=== PATIENT | female | born 1980 ===

== ENCOUNTER 2022-04-17 06:59 | Emergency (ER) | payer MEDICAID, SELFPAY ==
--- NOTE | ~2022-04-17 | XR_ITS ---
EXAMINATION: XR CHEST CLINICAL INFORMATION: Left-sided chest pain COMPARISON: Previous chest x-ray March 2016 TECHNIQUE: Frontal view of the chest was obtained. FINDINGS: No significant abnormality is noted involving the heart, lungs, mediastinum, bony thorax or soft tissues. XR/XR chest 1V IMPRESSION: Unremarkable examination.
--- NOTE | 2022-04-17 07:08 | ECG_ITS ---
Test Reason : CP Blood Pressure : / mmHG Vent. Rate : 089 BPM Atrial Rate : 089 BPM P-R Int : 132 ms QRS Dur : 074 ms QT Int : 376 ms P-R-T Axes : 054 041 062 degrees QTc Int : 457 ms Normal sinus rhythm ST & T wave abnormality, consider inferior ischemia ST & T wave abnormality, consider anterior ischemia Abnormal ECG When compared with ECG of 06-APR-2016 12:55, T wave inversion now evident in Inferior leads T wave inversion now evident in Anterior leads Referred By: Generic ED Physician Electronically Signed By:Bridger Wills
[2022-04-17 07:22] VITALS: BP 125/87; PULSE 95; RESP 16; TEMP 36.7; O2SAT 99; BMI 28.0
--- NOTE | 2022-04-17 07:26 | ED.CHESTPAIN ---
HPI - Chest Pain General Chief Complaint: Chest Pain Stated Complaint: Chest pain Time Seen by Provider: 04/17/22 07:26 Source: patient Mode of arrival: ambulatory Limitations: no limitations History of Present Illness HPI narrative: 41-year-old female who presents emergency department for evaluation of chest pain. 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 She states that yesterday at 16:30 hours she ate at [employer], she had the original crispy chicken and Japanese fries. She states that shortly after eating his food she developed a constant left-sided chest pain which she states has been waxing and waning in intensity. She states that this pain is different than her usual esophagitis. She states that throughout the morning she woke up every hour secondary to her pain. She describes a fluttering sensation in her chest as well. She states that her pain is 8/10 at its worst. She had associated lightheadedness. She denied diaphoresis, nausea or vomiting. The pain does radiate to her left axilla. It does not radiate to her back. She denied fever, chills, rhinorrhea, sore throat. She states she has a chronic cough secondary to her smoking. Denies shortness of breath. She states she has mild dyspnea on exertion which again she attributes to her smoking. She denied nausea, vomiting diarrhea. She denied frequency, urgency or dysuria. She has not been vaccinated against COVID-19. She states that she did have a COVID-19 infection in November of 2021 MD complaint: chest pain Onset (ago): hour(s) (17) Timing of current episode: constant ('s and wanes in intensity) Prior episodes: No Onset: during rest Pain location: left chest Pain radiation: other (Left axilla) Severity: severe Pain scale (0-10): 8 Quality: other (Pressure and flexed sensation) Relieving factors: nothing Exacerbating factors: nothing Associated symptoms: other (Lightheaded) Treatment prior to arrival: none Risk Factors Coronary artery disease risk factors: smoking history (1/2-1 pack per day times 22 years) Related Data Previous Rx's Medication Instructions Recorded lorazepam 0.5 mg tablet (Ativan) 0.5 mg PO TID PRN #10 tab 04/17/22 potassium chloride 20 mEq 20 meq PO DAILY #10 tab 04/17/22 tablet,extended release(part/cryst) Allergies Allergy/AdvReac Type Severity Reaction Status Date / Time amoxicillin [AMOXICILLIN] Allergy Unknown HIVES Verified 04/17/22 07:28 aspirin [ASPIRIN] Allergy Unknown DISORIENTED Verified 04/17/22 07:28 azithromycin [Azithromycin] Allergy Unknown HIVES Verified 04/17/22 07:28 erythromycin base Allergy Unknown HIVES TO Verified 04/17/22 07:28 [Erythromycin Base] MYCINS Penicillins [PENICILLINS] Allergy Unknown HIVES Verified 04/17/22 07:28 Review of Systems Review of Systems: Yes all other systems are reviewed and are negative [facility] Past Medical History [facility] Narrative: Past medical history: GERD, esophagitis, depression, anxiety, anger disorder. Past surgical history: None. Social history: She smokes 1/2 pack of cigarettes per day times 22 years. She denies alcohol use. She does smoke marijuana for her anxiety. Social History Social History Alcohol intake: never Smoked in Last 30 Days: No Use of substances other than those prescribed or required for medical reasons: No Advance Directives: No Advance Directives Information Provided: No Physical Exam Vital Signs: Vital Signs: Last Vital Signs Temp 98.1 F 04/17/22 07:22 Pulse 95 04/17/22 07:22 Resp 16 04/17/22 07:22 BP 125/87 04/17/22 07:22 Pulse Ox 99 04/17/22 07:22 BMI result Body Mass Index 28.0 Const: General: cooperative and no acute distress Orientation/consciousness: oriented to person and oriented to place Limitations: no limitations HEENT: Head: Yes normal to inspection, Yes normocephalic and Yes atraumatic Ears: external ears normal General nose exam: Normal external nose present Face and sinus: Yes normal facial exam Mouth: Normal oral and palatal mucosa present Throat: Yes posterior oropharynx normal Eyes: General: appearance normal, both eyes and all related structures Pupils: Equal, round and reactive pupils present Neck: Neck: Yes normal visual inspection, Yes no lymphadenopathy, Yes trachea midline and Yes supple Chest: Chest palpation & inspection: normal inspection of the chest and normal palpation of entire chest wall Resp: Effort & Inspection: normal respiratory effort and able to speak in complete sentences Auscultation: clear to auscultation bilaterally Cardio: Rate: regular rate Rhythm: regular rhythm Heart sounds: S1 normal heart sound present, S2 normal heart sound present and no murmurs GI: Inspection: Yes normal to inspection Palpation (GI): Soft to palpation, nontender and no guarding Auscultation: normal bowel sounds : General: Yes no CVA tenderness Back/Spine/Pelvis: Back: no CVA tenderness Skin: General skin exam: no rashes or lesions noted Neuro: General: oriented to person and oriented to place Cranial nerves: Yes CN's II-XII intact bilaterally and Yes Equal, round and reactive pupils present Cognition (Neuro): normal cognition Motor exam (neuro): 5/5 motor strength present throughout Extrem: General: Yes normal to inspection Psych: Appearance: grossly normal Speech and movement: Normal speech and movement present Affect: normal affect Attitude: cooperative Thought process: Normal thought process present Thought content: Normal thought content present Course Course Course Narrative: 41-year-old female who presents emergency department for evaluation left-sided chest pain radiating to her axilla, the pain started yesterday at 16:30 hours after she ate food at [employer]. She states she has a history of GERD and esophagitis which is triggered by food but this pain was different than her usual esophagitis pain. Patient's initial vital signs were normal and her physical examination was unremarkable . Differential includes but is not limited to esophagitis, GERD, anxiety, coronary disease, myocardial infarction, cardiac ischemia, palpitations. Laboratory evaluation was ordered. Patient was treated with Toradol 15 mg IV, Zofran 4 mg IV and Ativan 0.5 mg orally Twelve EKG was abnormal. Patient had a normal sinus rhythm with a rate of 89, she has less than [address] segment depression in leads 2, AVF, V3 through V6. I do not have an old EKG available for comparison. 1001: Laboratory evaluation: WBC elevated 15,000. Potassium low 3.0 troponin below detectable limits. Radiology evaluation: Chest x-ray was unremarkable. The patient did have PVCs on the sterile technician which she was feeling which explains her palpitations. At this time I believe that her chest pain is secondary to her esophagitis and I did discuss this with her. The patient was given potassium chloride 40 mEq orally. She was started on a potassium supplement 20 mg once a day for 1 week. The patient did get improvement with the above treatment I do believe she has component of anxiety which is making her palpitations worse therefore she was prescribed Ativan 0.5 mg 1 pill 3 times a day as needed for anxiety, palpitations. She was given printed and verbal instructions and discharged home. MDM - Chest Pain Lab Data Result diagrams: 04/17/22 08:08 04/17/22 08:08 Labs: Lab Results 04/17/22 04/17/22 04/17/22 Range/Units 08:08 08:08 08:08 WBC 15.0 H (4.8-10.8) X10*3/uL RBC 4.14 L (4.20-5.50) X10*6/uL Hgb 13.6 (12.0-16.0) g/dl Hct 39.9 (37.0-47.0) % MCV 96.4 (80.0-98.0) fL MCH 32.9 (27.0-33.0) pg MCHC 34.1 (31.0-35.0) g/dl RDW 12.7 (11.0-16.0) % Plt Count 211 (160-400) X10*3/uL MPV 11.1 (9.4-12.3) fL Immature Gran % (Auto) 0.3 (0.0-0.4) % Neut % (Auto) 84.0 H (45-73) % Lymph % (Auto) 11.6 L (20-40) % Elbert % (Auto) 3.7 (2-11) % Eos % (Auto) 0.2 (0-4) % Baso % (Auto) 0.2 (0-2) % Lymph # (Auto) 1.7 (1.2-4.9) X10*3/uL Elbert # (Auto) 0.6 (0.1-1.2) X10*3/uL Eos # (Auto) 0.0 (0.0-0.4) X10*3/uL Baso # (Auto) 0.0 (0.0-0.2) X10*3/uL Abs Immat Gran (auto) 0.05 H (0.00-0.03) X10*3/uL Absolute Neuts (auto) 12.6 H (2.0-8.3) x10*3/uL Absolute Nucleated RBC 0.000 (0.0-0.012) X10*3/uL Nucleated RBC % (auto) 0.0 (0.0-0.2) /100WBC Sodium 144 (135-145) mmol/L Potassium 3.0 L (3.3-5.1) mmol/L Chloride 113 H (96-108) mmol/L Carbon Dioxide 23 (22-29) mmol/L Anion Gap 11 L (12-20) BUN 9 (9-16) mg/dL Creatinine 0.74 (0.5-1.4) mg/dL Estim Creat Clear Calc 98.5 Estimated GFR > 60 Random Glucose 95 (60-115) mg/dL Calcium 8.8 (8.4-10.2) mg/dL Total Bilirubin 0.5 (0.0-1.0) mg/dL AST 10 (5-31) U/L ALT 8 (0-31) U/L Alkaline Phosphatase 64 (39-117) U/L Troponin I High Sens < 3.5 (<3.5-17.0) ng/L Total Protein 6.1 L (6.5-8.0) g/dL Albumin 3.7 (3.5-5.0) g/dL Lipase 20 (8-78) U/L ECG Data ECG #1: Attestation: I personally reviewed and interpreted this ECG as follows: Interpretation: 0703: Normal sinus rhythm with a rate of 89, normal MI interval, QRS duration QTC interval, less than [address] segment depression in leads 2, AVF, V3 through V6, no ST segment elevation, no PACs, no PVCs, this EKG is concerning for lateral and inferior ischemia. Discharge Plan Discharge Clinical Impression: Palpitations, Acute hypokalemia Chest pain Qualifiers: Chest pain type: unspecified Qualified Code(s): R07.9 - Chest pain, unspecified Patient Disposition: Home, Self-Care Instructions: Heart Palpitations (DC), Potassium Content of Foods List (ED), Hypokalemia (ED) Additional Instructions: Your laboratory evaluation did reveal a slight elevation in your white blood cell count and a slightly low potassium. Your troponin (a sensitive marker for heart attacks) was below detectable limits which is reassuring At this time I believe that your chest pain is caused by your esophagitis. Your experiencing palpitations and on the sterile technician you have premature ventricular contractions (PVCs). These are common and are normal and these PVCs explain the pause and thumping sensation that you are feeling in your chest. Take K-dur 20 mEq once a day for 10 days this is a potassium supplement See list of high potassium foods Sometimes palpitations can be caused by anxiety, stress, pain, lack of sleep, and caffeine. Avoid caffeine for the next 2 weeks. Take Ativan 0.5 mg pills, 1 pill every 6-8 hours as needed for anxiety and palpitations. This medication will make you sleepy, do not drive or work while taking this medication. Ativan can be addictingIf your concerned about addiction you can ask the pharmacist to give you less pills than prescribed. Follow-up with your doctor in 2 days. Please return to the emergency department if your symptoms get worse or if you develop any symptoms that are concerning to you. Prescriptions: New potassium chloride 20 mEq tablet,ER particles/crystals 20 meq PO DAILY Qty: 10 0RF lorazepam [Ativan] 0.5 mg tablet 0.5 mg PO TID PRN (Reason: anxiety) Qty: 10 0RF Rx Instructions: patient may ask for partial fill
[2022-04-17] MEDS: Ketorolac Tromethamine 15 MG/ML VIAL IVPUSH (08:13)
[2022-04-17] MEDS: ondansetron HCL 4 MG/2 ML VIAL IVPUSH (08:13)
[2022-04-17] MEDS: LORazepam 0.5 MG TABLET PO (08:13)
[2022-04-17 08:14] LABS: MANUAL DIFF FLAG NO
[2022-04-17 08:15] LABS: Basophils Percent Auto 0.2 % (0-2); Eosinophils Percent Auto 0.2 % (0-4); Hematocrit 39.9 % (37.0-47.0); Hemoglobin 13.6 g/dl (12.0-16.0); Imm Gran Abs Auto 0.05 X10*3/uL (0.00-0.03); Imm Gran Pct Auto 0.3 % (0.0-0.4); Lymphocytes Absolute Auto 1.7 X10*3/uL (1.2-4.9); Lymphocytes Percent Auto 11.6 % (20-40); Mean Corpuscular HGB Conc 34.1 g/dl (31.0-35.0); Mean Corpuscular Hemoglobin 32.9 pg (27.0-33.0); Mean Corpuscular Volume 96.4 fL (80.0-98.0); Mean Platelet Volume 11.1 fL (9.4-12.3); Monocytes Absolute Auto 0.6 X10*3/uL (0.1-1.2); Monocytes Percent Auto 3.7 % (2-11); Neutrophils Absolute Auto 12.6 x10*3/uL (2.0-8.3); Platelet Count 211 X10*3/uL (160-400); Red Blood Count 4.14 X10*6/uL (4.20-5.50); Red Cell Distribution Width 12.7 % (11.0-16.0)
[2022-04-17 08:29] LABS: Alanine Aminotransferase 8 U/L (0-31); Albumin Level 3.7 g/dL (3.5-5.0); Alkaline Phosphatase 64 U/L (39-117); Anion Gap 11 (12-20); Aspartate Amino Transferase 10 U/L (5-31); Bilirubin Total 0.5 mg/dL (0.0-1.0); Blood Urea Nitrogen 9 mg/dL (9-16); Calcium 8.8 mg/dL (8.4-10.2); Carbon Dioxide 23 mmol/L (22-29); Chloride 113 mmol/L (96-108); Creatinine Clr Calc Pharmacy 98.5; Estimated Glomerular Filt Rate > 60; Glucose Random 95 mg/dL (60-115); Lipase 20 U/L (8-78); Sodium 144 mmol/L (135-145); Total Protein 6.1 g/dL (6.5-8.0)
[2022-04-17 08:35] LABS: Troponin-I High Sensitivity < 3.5 ng/L (<3.5-17.0)
[2022-04-17] MEDS: Potassium Chloride Packet 20 MEQ PACKET 40 MEQ PO (10:40)
== END 2022-04-17 10:50 | disposition home or self-care (01) ==
PROVIDERS: Emergency Provider Emergency Medicine Emergency Medical Services
DX: R00.2 Palpitations (principal); E87.6 Hypokalemia; R07.89 Other chest pain; R42 Dizziness and giddiness; R05.9 Cough, unspecified; F17.210 Nicotine dependence, cigarettes, uncomplicated; Z71.6 Tobacco abuse counseling; Z79.899 Other long term (current) drug therapy
CPT/HCPCS: 36415; 71045; 80053; 83690; 84484; 85025; 93005; 96374; 96375; 99284; J1885; J2405

== ENCOUNTER 2022-04-21 10:31 | Emergency (ER) | payer MEDICAID, SELFPAY ==
--- NOTE | 2022-04-21 | ECG_ITS ---
Test Reason : chest pain Blood Pressure : / mmHG Vent. Rate : 097 BPM Atrial Rate : 097 BPM P-R Int : 124 ms QRS Dur : 074 ms QT Int : 364 ms P-R-T Axes : 072 051 076 degrees QTc Int : 462 ms Normal sinus rhythm Nonspecific ST and T wave abnormality Abnormal ECG When compared with ECG of 17-APR-2022 07:03, No significant change was found Referred By: Generic ED Physician Electronically Signed By:Bridger Wills
[2022-04-21 10:42] VITALS: BP 127/96; PULSE 98; RESP 18; TEMP 37.2; O2SAT 100; BMI 28.3
--- NOTE | 2022-04-21 11:16 | ED.CHESTPAIN ---
HPI - Chest Pain General Chief Complaint: Chest Pain Stated Complaint: Chest Discomfort ? Allergic Reaction Time Seen by Provider: 04/21/22 10:47 Source: patient and old records reviewed Mode of arrival: ambulatory Limitations: no limitations History of Present Illness HPI narrative: seen on 04/17 low K sent home with repletion and troponin negative at that time. hx of GERD, jackhammer esophagus with esophagitis, anxiety notes her chest pain that is sharp and stabbing returned this AM, she feels shaky and hot, ativan is not helping her. This has never happened to her before. She is not on OCPs MD complaint: chest pain Onset (ago): hour(s) (04/17 and then a few hours ago) Timing of current episode: constant Prior episodes: Yes Onset: during rest Pain location: left chest Pain radiation: none Severity: moderate Quality: sharp Relieving factors: nothing Exacerbating factors: movement Associated symptoms: nausea, vomiting and sense of impending doom Treatment prior to arrival: other (compliant with her K and ativan) Related Data Previous Rx's Medication Instructions Recorded lorazepam 0.5 mg tablet (Ativan) 0.5 mg PO TID PRN #10 tab 04/17/22 potassium chloride 20 mEq 20 meq PO DAILY #10 tab 04/17/22 tablet,extended release(part/cryst) ondansetron 4 mg disintegrating 4 mg PO Q8H PRN #20 tab 04/21/22 tablet Allergies Allergy/AdvReac Type Severity Reaction Status Date / Time amoxicillin [AMOXICILLIN] Allergy Unknown HIVES Verified 04/17/22 07:28 aspirin [ASPIRIN] Allergy Unknown DISORIENTED Verified 04/17/22 07:28 azithromycin [Azithromycin] Allergy Unknown HIVES Verified 04/17/22 07:28 erythromycin base Allergy Unknown HIVES TO Verified 04/17/22 07:28 [Erythromycin Base] MYCINS Penicillins [PENICILLINS] Allergy Unknown HIVES Verified 04/17/22 07:28 Review of Systems Review of Systems: Constitutional : No Weight loss, No Fever, No Chills, pos sweats ENT/Mouth : No sore throat, No Rhinorrhea Eyes: No Eye Pain, No Swelling Cardiovascular : pos Chest Pain, pos SOB, no Dyspnea on Exertion, No Orthopnea, No Edema, No Palpitations Respiratory : No Cough, No Sputum Gastrointestinal : pos Nausea, pos Vomiting, pos Diarrhea, No abdominal Pain, No Hematochezia, No Melena Genitourinary : No Dysuria, No Urinary Frequency Musculoskeletal : No joint pain, No Myalgias, No Joint Swelling Skin : No Skin Lesions, No rash Neuro : No Weakness, No Numbness, No Dizziness, No Headache Psych : pos Anxiety/Panic, No Depression Heme/Lymph: No Bruising, No Lymphadenopathy Endocrine : No Polyuria, No Polydipsia All other systems reviewed and are negative [facility] Past Medical History Attestation statement: The following information was validated with the patient. Medical History Anxiety Esophagitis GERD (gastroesophageal reflux disease) Social History Social History (Updated 04/21/22 @ 12:01 by Irasema Lorenzo DO) Alcohol intake: never Patient Tobacco Use Status: Current someday Tobacco user Advance Directives: No Advance Directives Information Provided: Yes Physical Exam Vital Signs: Vital Signs: Last Vital Signs Temp 98.9 F 04/21/22 10:42 Pulse 72 04/21/22 14:08 Resp 18 04/21/22 14:08 BP 123/72 04/21/22 14:08 Pulse Ox 98 04/21/22 14:08 BMI result Body Mass Index 28.3 Appearance: Alert. Oriented X3. No acute distress. Anxious, shaking Eyes: Pupils equal, round and reactive to light. ENT: Pharynx normal. Neck: Normal inspection. Neck supple. CVS: Normal heart rate and rhythm. Pulses normal. Respiratory: No respiratory distress. Breath sounds normal. Abdomen: Soft and non-tender. Skin: Skin warm and dry. Normal skin color. Normal skin turgor. Extremities: No lower extremity edema. No calf ttp Neuro: Oriented X 3. No motor deficit. No sensory deficit. Course Course Course Narrative: discussed with Cardiology given EKG - repeat troponin patient is flu B positive ? symptoms started on 04/17 vs today discussed with cardiology - outpatient stress test. will hold tamiflu as symptoms likely longer than 48 hours MDM - Chest Pain MDM Narrative Medical decision making narrative: 41 yo female with hx of anxiety, GERD, esophagitis here with c/o sharp chest pain with abnormal EKG - will repeat lytes, IV ativan, IV magnesium, IVF, troponin, ddimer dispo per results and findings possible discussion with cards given EKG Lab Data Result diagrams: 04/21/22 11:11 04/21/22 11:11 Labs: Lab Results 04/21/22 04/21/22 04/21/22 Range/Units 11:11 11:11 11:11 WBC 6.4 (4.8-10.8) X10*3/uL RBC 4.13 L (4.20-5.50) X10*6/uL Hgb 13.6 (12.0-16.0) g/dl Hct 40.4 (37.0-47.0) % MCV 97.8 (80.0-98.0) fL MCH 32.9 (27.0-33.0) pg MCHC 33.7 (31.0-35.0) g/dl RDW 12.7 (11.0-16.0) % Plt Count 192 (160-400) X10*3/uL MPV 10.8 (9.4-12.3) fL Immature Gran % (Auto) 0.3 (0.0-0.4) % Neut % (Auto) 75.5 H (45-73) % Lymph % (Auto) 18.6 L (20-40) % Nolan % (Auto) 4.8 (2-11) % Eos % (Auto) 0.2 (0-4) % Baso % (Auto) 0.6 (0-2) % Lymph # (Auto) 1.2 (1.2-4.9) X10*3/uL Nolan # (Auto) 0.3 (0.1-1.2) X10*3/uL Eos # (Auto) 0.0 (0.0-0.4) X10*3/uL Baso # (Auto) 0.0 (0.0-0.2) X10*3/uL Abs Immat Gran (auto) 0.02 (0.00-0.03) X10*3/uL Absolute Neuts (auto) 4.8 (2.0-8.3) x10*3/uL Absolute Nucleated RBC 0.000 (0.0-0.012) X10*3/uL Nucleated RBC % (auto) 0.0 (0.0-0.2) /100WBC D-Dimer High Sensitivty NG/ML Sodium 142 (135-145) mmol/L Potassium 3.9 D (3.3-5.1) mmol/L Chloride 111 H (96-108) mmol/L Carbon Dioxide 22 (22-29) mmol/L Anion Gap 13 (12-20) BUN 9 (9-16) mg/dL Creatinine 0.74 (0.5-1.4) mg/dL Estim Creat Clear Calc 95.5 Estimated GFR > 60 Random Glucose 83 (60-115) mg/dL Calcium 9.6 D (8.4-10.2) mg/dL Magnesium (1.6-2.6) mg/dL Total Bilirubin 0.7 (0.0-1.0) mg/dL AST 11 (5-31) U/L ALT 8 (0-31) U/L Alkaline Phosphatase 76 (39-117) U/L Troponin I High Sens < 3.5 (<3.5-17.0) ng/L Total Protein 6.6 (6.5-8.0) g/dL Albumin 4.1 (3.5-5.0) g/dL COVID-19 (BREANA) (Negative) COVID-19 Clin Com Influenza Type A (JOEL) (Negative) Influenza Type B (JOEL) (Negative) Influenza A & B Note 04/21/22 04/21/22 04/21/22 Range/Units 11:11 11:11 11:11 WBC (4.8-10.8) X10*3/uL RBC (4.20-5.50) X10*6/uL Hgb (12.0-16.0) g/dl Hct (37.0-47.0) % MCV (80.0-98.0) fL MCH (27.0-33.0) pg MCHC (31.0-35.0) g/dl RDW (11.0-16.0) % Plt Count (160-400) X10*3/uL MPV (9.4-12.3) fL Immature Gran % (Auto) (0.0-0.4) % Neut % (Auto) (45-73) % Lymph % (Auto) (20-40) % Nolan % (Auto) (2-11) % Eos % (Auto) (0-4) % Baso % (Auto) (0-2) % Lymph # (Auto) (1.2-4.9) X10*3/uL Nolan # (Auto) (0.1-1.2) X10*3/uL Eos # (Auto) (0.0-0.4) X10*3/uL Baso # (Auto) (0.0-0.2) X10*3/uL Abs Immat Gran (auto) (0.00-0.03) X10*3/uL Absolute Neuts (auto) (2.0-8.3) x10*3/uL Absolute Nucleated RBC (0.0-0.012) X10*3/uL Nucleated RBC % (auto) (0.0-0.2) /100WBC D-Dimer High Sensitivty NG/ML Sodium (135-145) mmol/L Potassium (3.3-5.1) mmol/L Chloride (96-108) mmol/L Carbon Dioxide (22-29) mmol/L Anion Gap (12-20) BUN (9-16) mg/dL Creatinine (0.5-1.4) mg/dL Estim Creat Clear Calc Estimated GFR Random Glucose (60-115) mg/dL Calcium (8.4-10.2) mg/dL Magnesium 1.7 (1.6-2.6) mg/dL Total Bilirubin (0.0-1.0) mg/dL AST (5-31) U/L ALT (0-31) U/L Alkaline Phosphatase (39-117) U/L Troponin I High Sens (<3.5-17.0) ng/L Total Protein (6.5-8.0) g/dL Albumin (3.5-5.0) g/dL COVID-19 (BREANA) Negative (Negative) COVID-19 Clin Com See Note Influenza Type A (JOEL) Negative (Negative) Influenza Type B (JOEL) Positive A (Negative) Influenza A & B Note See Note 04/21/22 04/21/22 Range/Units 11:42 13:25 WBC (4.8-10.8) X10*3/uL RBC (4.20-5.50) X10*6/uL Hgb (12.0-16.0) g/dl Hct (37.0-47.0) % MCV (80.0-98.0) fL MCH (27.0-33.0) pg MCHC (31.0-35.0) g/dl RDW (11.0-16.0) % Plt Count (160-400) X10*3/uL MPV (9.4-12.3) fL Immature Gran % (Auto) (0.0-0.4) % Neut % (Auto) (45-73) % Lymph % (Auto) (20-40) % Nolan % (Auto) (2-11) % Eos % (Auto) (0-4) % Baso % (Auto) (0-2) % Lymph # (Auto) (1.2-4.9) X10*3/uL Nolan # (Auto) (0.1-1.2) X10*3/uL Eos # (Auto) (0.0-0.4) X10*3/uL Baso # (Auto) (0.0-0.2) X10*3/uL Abs Immat Gran (auto) (0.00-0.03) X10*3/uL Absolute Neuts (auto) (2.0-8.3) x10*3/uL Absolute Nucleated RBC (0.0-0.012) X10*3/uL Nucleated RBC % (auto) (0.0-0.2) /100WBC D-Dimer High Sensitivty < 150 NG/ML Sodium (135-145) mmol/L Potassium (3.3-5.1) mmol/L Chloride (96-108) mmol/L Carbon Dioxide (22-29) mmol/L Anion Gap (12-20) BUN (9-16) mg/dL Creatinine (0.5-1.4) mg/dL Estim Creat Clear Calc Estimated GFR Random Glucose (60-115) mg/dL Calcium (8.4-10.2) mg/dL Magnesium (1.6-2.6) mg/dL Total Bilirubin (0.0-1.0) mg/dL AST (5-31) U/L ALT (0-31) U/L Alkaline Phosphatase (39-117) U/L Troponin I High Sens < 3.5 (<3.5-17.0) ng/L Total Protein (6.5-8.0) g/dL Albumin (3.5-5.0) g/dL COVID-19 (BREANA) (Negative) COVID-19 Clin Com Influenza Type A (JOEL) (Negative) Influenza Type B (JOEL) (Negative) Influenza A & B Note ECG Data ECG #1: Attestation: I personally reviewed and interpreted this ECG as follows: ECG interpretation date: 04/21/22 ECG interpretation time: 11:17 Interpretation: Rate: 97 Rhythm: NSR [place]: normal Normal P waves. Normal ARIA. Normal QRS complex. ST T wave : diffuse ST seg depressions - anterior and inf leads no LUZ MARIA qTC: normal prior studies: no change from 04/17/22 but new since 2016 The study has been interpreted contemporaneously by me. . Discharge Plan Discharge Clinical Impression: Atypical chest pain, Influenza B, Abnormal ECG Patient Disposition: Home, Self-Care Instructions: Chest Pain (ED), Influenza (ED) Additional Instructions: return to ED for any worsening symptoms or concerns follow up with cardiology for outpatient stress test call office on Saturday - can stop taking potassium quarantine for 5 days Prescriptions: New ondansetron 4 mg tablet,disintegrating 4 mg PO Q8H PRN (Reason: nausea and vomiting) Qty: 20 0RF No Action potassium chloride 20 mEq tablet,ER particles/crystals 20 meq PO DAILY Qty: 10 0RF lorazepam [Ativan] 0.5 mg tablet 0.5 mg PO TID PRN (Reason: anxiety) Qty: 10 0RF Rx Instructions: patient may ask for partial fill Referrals: Bridger Wills MD [Physician] - 3 days Stand Alone Forms: Work/School Release
[2022-04-21 11:17] LABS: MANUAL DIFF FLAG NO
[2022-04-21 11:20] LABS: Basophils Percent Auto 0.6 % (0-2); Eosinophils Percent Auto 0.2 % (0-4); Hematocrit 40.4 % (37.0-47.0); Hemoglobin 13.6 g/dl (12.0-16.0); Imm Gran Abs Auto 0.02 X10*3/uL (0.00-0.03); Imm Gran Pct Auto 0.3 % (0.0-0.4); Lymphocytes Absolute Auto 1.2 X10*3/uL (1.2-4.9); Lymphocytes Percent Auto 18.6 % (20-40); Mean Corpuscular HGB Conc 33.7 g/dl (31.0-35.0); Mean Corpuscular Hemoglobin 32.9 pg (27.0-33.0); Mean Corpuscular Volume 97.8 fL (80.0-98.0); Mean Platelet Volume 10.8 fL (9.4-12.3); Monocytes Absolute Auto 0.3 X10*3/uL (0.1-1.2); Monocytes Percent Auto 4.8 % (2-11); Neutrophils Absolute Auto 4.8 x10*3/uL (2.0-8.3); Neutrophils Percent Auto 75.5 % (45-73); Platelet Count 192 X10*3/uL (160-400); Red Blood Count 4.13 X10*6/uL (4.20-5.50); Red Cell Distribution Width 12.7 % (11.0-16.0); White Blood Count 6.4 X10*3/uL (4.8-10.8)
[2022-04-21 11:35] LABS: Magnesium 1.7 mg/dL (1.6-2.6)
[2022-04-21 11:37] LABS: Alanine Aminotransferase 8 U/L (0-31); Albumin Level 4.1 g/dL (3.5-5.0); Alkaline Phosphatase 76 U/L (39-117); Anion Gap 13 (12-20); Aspartate Amino Transferase 11 U/L (5-31); Bilirubin Total 0.7 mg/dL (0.0-1.0); Blood Urea Nitrogen 9 mg/dL (9-16); Calcium 9.6 mg/dL (8.4-10.2); Carbon Dioxide 22 mmol/L (22-29); Chloride 111 mmol/L (96-108); Creatinine Clr Calc Pharmacy 95.5; Estimated Glomerular Filt Rate > 60; Glucose Random 83 mg/dL (60-115); Potassium 3.9 mmol/L (3.3-5.1); Sodium 142 mmol/L (135-145); Total Protein 6.6 g/dL (6.5-8.0)
[2022-04-21 11:40] LABS: COVID-19 Test Negative (Negative)
[2022-04-21 11:43] LABS: Troponin-I High Sensitivity < 3.5 ng/L (<3.5-17.0)
[2022-04-21 12:06] LABS: D Dimer High Sensitivity < 150 NG/ML
[2022-04-21] MEDS: 0.9 % Sodium Chloride 1,000 ML 999 ML IV (12:06)
[2022-04-21] MEDS: LORazepam 2 MG/ML VIAL 1 MG IVPUSH (12:14)
[2022-04-21 12:20] LABS: IDNOW Serial# 55D5AD1C; Influenza A Negative (Negative); Influenza B2 Positive (Negative)
[2022-04-21] MEDS: Magnesium Sulfate/H2O 2 GM/50 ML PIGGYBACK IV (12:29)
[2022-04-21 13:26] VITALS: BP 118/71; PULSE 71; RESP 16; O2SAT 97
[2022-04-21 13:53] LABS: Troponin-I High Sensitivity < 3.5 ng/L (<3.5-17.0)
[2022-04-21 14:08] VITALS: BP 123/72; PULSE 72; RESP 18; O2SAT 98
== END 2022-04-21 15:34 | disposition home or self-care (01) ==
PROVIDERS: Emergency Provider Emergency Medicine; PCP Internal Medicine
DX: J10.1 Influenza due to other identified influenza virus with other respiratory manifestations (principal); R07.89 Other chest pain; R11.2 Nausea with vomiting, unspecified; R94.31 Abnormal electrocardiogram [ECG] [EKG]; Z79.899 Other long term (current) drug therapy; F17.200 Nicotine dependence, unspecified, uncomplicated; Z71.6 Tobacco abuse counseling; Z20.822 Contact with and (suspected) exposure to COVID-19
CPT/HCPCS: 36415; 80053; 83735; 84484; 85025; 85379; 87502; 87635; 93005; 99282; 99283; J2060; J3475

== ENCOUNTER 2023-11-13 22:05 | Emergency (ER) | payer OTHER, SELFPAY ==
--- NOTE | 2023-11-13 | ECG_ITS ---
Test Reason : cp Blood Pressure : / mmHG Vent. Rate : 093 BPM Atrial Rate : 093 BPM P-R Int : 132 ms QRS Dur : 072 ms QT Int : 348 ms P-R-T Axes : 027 011 028 degrees QTc Int : 432 ms Normal sinus rhythm Nonspecific ST abnormality Abnormal ECG When compared with ECG of 21-APR-2022 10:38, Nonspecific T wave abnormality no longer evident in Anterolateral leads Referred By: Generic ED Physician Electronically Signed By:MALCOM JOHNSON MD
--- NOTE | ~2023-11-13 | XR_ITS ---
EXAMINATION: XR FOOT, RIGHT CLINICAL INFORMATION: Pain COMPARISON: None available. TECHNIQUE: AP, lateral, and oblique views of the right foot. FINDINGS: The bones and soft tissues are normal. No fracture. Alignment is anatomic. Joint spaces are maintained. XR/XR foot RT min 3V IMPRESSION: Normal right foot.
[2023-11-13 22:08] VITALS: BP 123/77; PULSE 107; RESP 18; TEMP 36.4; O2SAT 97; BMI 33.6
[2023-11-13 23:04] LABS: MANUAL DIFF FLAG NO
[2023-11-13 23:07] LABS: Basophils Absolute Auto 0.1 X10*3/uL (0.0-0.2); Basophils Percent Auto 0.6 % (0-2); Eosinophils Absolute Auto 0.1 X10*3/uL (0.0-0.4); Eosinophils Percent Auto 0.8 % (0-4); Hematocrit 40.2 % (37.0-47.0); Hemoglobin 14.1 g/dl (12.0-16.0); Imm Gran Abs Auto 0.03 X10*3/uL (0.00-0.03); Imm Gran Pct Auto 0.3 % (0.0-0.4); Lymphocytes Absolute Auto 1.4 X10*3/uL (1.2-4.9); Lymphocytes Percent Auto 14.5 % (20-40); Mean Corpuscular HGB Conc 35.1 g/dl (31.0-35.0); Mean Corpuscular Hemoglobin 33.7 pg (27.0-33.0); Mean Corpuscular Volume 95.9 fL (80.0-98.0); Mean Platelet Volume 10.4 fL (9.4-12.3); Monocytes Absolute Auto 0.5 X10*3/uL (0.1-1.2); Monocytes Percent Auto 5.4 % (2-11); Neutrophils Absolute Auto 7.5 x10*3/uL (2.0-8.3); Neutrophils Percent Auto 78.4 % (45-73); Platelet Count 230 X10*3/uL (160-400); Red Blood Count 4.19 X10*6/uL (4.20-5.50); White Blood Count 9.5 X10*3/uL (4.8-10.8)
[2023-11-13 23:27] LABS: Alanine Aminotransferase 13 U/L (0-31); Alkaline Phosphatase 90 U/L (39-117); Anion Gap 12 (12-20); Aspartate Amino Transferase 20 U/L (5-31); Bilirubin Direct 0.1 mg/dL (0.0-0.5); Bilirubin Total 0.3 mg/dL (0.0-1.0); Blood Urea Nitrogen 7 mg/dL (9-16); Calcium 9.7 mg/dL (8.4-10.2); Carbon Dioxide 25 mmol/L (22-29); Chloride 109 mmol/L (96-108); Creatinine Clr Calc Pharmacy 116.7; Estimated Glomerular Filt Rate > 60; Glucose Random 89 mg/dL (60-115); Lipase 14 U/L (8-78); Potassium 3.8 mmol/L (3.3-5.1); Sodium 142 mmol/L (135-145)
[2023-11-13 23:40] LABS: Troponin-I High Sensitivity < 2.7 ng/L (<3.5-17.0)
[2023-11-13 23:50] LABS: D Dimer High Sensitivity < 150 NG/ML
--- NOTE | 2023-11-13 23:54 | ED_ITS ---
HPI - General Adult General Chief complaint: General Medical Stated complaint: broken toe t-7, cant put pressure on leg, CP O/ON Time Seen by Provider: 11/13/23 22:45 Source: patient, RN notes reviewed and old records reviewed Mode of arrival: ambulatory Limitations: no limitations History of Present Illness HPI narrative: [age] year old female presents for evaluation of right leg and chest pain Patient reports that a little over week ago she was building her son a bed and she dropped a large piece of furniture on the right foot/toe This was the right 2nd toe that was mostly affected but she has pain extending up to the end of her foot as well She did not get x-rays because ?I know we do not do anything for broken toes any ways. ? Patient states that she has significant bruising and the toe turned black. She states that today she noticed pain in her right calf that is worse with moving, she has pain up into her right hip and she had an onset of chest pain and shortness of breath Patient states that she does have a history of anxiety as well She states that she was concerned for DVT due to the right leg pain and then chest pain Related Data Previous Rx's Medication Instructions Recorded lorazepam 0.5 mg tablet (Ativan) 0.5 mg PO TID PRN anxiety #10 tabs 04/17/22 potassium chloride 20 mEq 20 meq PO DAILY #10 tabs 04/17/22 tablet,extended release(part/cryst) ondansetron 4 mg disintegrating 4 mg PO Q8H PRN nausea and 04/21/22 tablet vomiting #20 tabs Allergies Allergy/AdvReac Type Severity Reaction Status Date / Time amoxicillin [AMOXICILLIN] Allergy Unknown HIVES Verified 04/17/22 07:28 aspirin [ASPIRIN] Allergy Unknown DISORIENTED Verified 04/17/22 07:28 azithromycin [Azithromycin] Allergy Unknown HIVES Verified 04/17/22 07:28 erythromycin base Allergy Unknown HIVES TO Verified 04/17/22 07:28 [Erythromycin Base] MYCINS Penicillins [PENICILLINS] Allergy Unknown HIVES Verified 04/17/22 07:28 Review of Systems 2 Constitutional: Constitutional: Denies chills and Denies fever(s) Eyes: Eyes: Denies blurry vision ENT: Denies vertigo Cardiovascular: Cardiovascular: Reports chest pain and Reports dyspnea Respiratory: Respiratory: Denies cough and Reports dyspnea Gastrointestinal: Gastrointestinal: Denies abdominal pain, Denies nausea and Denies vomiting Musculoskeletal: Musculoskeletal: Denies back pain Integumentary/Breasts: Skin/Breast: Denies rash Neurologic: Denies vertigo Psychiatric: Psychiatric: Denies anxiety PMFSH Past Medical History Medical History Anxiety Esophagitis GERD (gastroesophageal reflux disease) Social History Social History (Updated 04/21/22 @ 12:01 by Olimpia Lorenzo DO) Alcohol intake: never Patient Tobacco Use Status: Current someday Tobacco user Advance Directives: No Advance Directives Information Provided: No Physical Exam ED Vital Signs: Vital Signs - 24 hr 11/13/23 22:08 Temperature 97.6 F Pulse Rate 107 H Respiratory Rate 18 Blood Pressure 123/77 Pulse Oximetry 97 Oxygen Delivery Method Room Air BMI result Body Mass Index 33.6 Const General: healthy appearing, comfortable, no acute distress, alert and awake Nutritional Appearance: well nourished Orientation/consciousness: patient oriented x3 HENMT Head: Yes normocephalic and Yes atraumatic Neck Neck: Yes full ROM Resp Effort & Inspection: normal respiratory effort, able to speak in complete sentences and not labored Cardio Rate: regular rate Rhythm: regular rhythm GI Inspection: No distended Palpation (GI): Soft to palpation, not firm, nontender, no guarding and not rigid Skin General skin exam: no rashes or lesions noted and elasticity normal Neuro General: patient oriented x3 Cranial nerves: Yes Bilaterally intact EOM present Cognition (Neuro): normal cognition Extrem Other: Patient has ecchymosis to the dorsal surface of the right 2nd toe extending to the proximal midfoot. No open wounds or lesions. Patient has mid calf tenderness without edema, no palpable cords, no erythema Negative Elin sign Medical Decision Making Medical Decision Making MDM Narrative: 43-year-old female presents for evaluation of right foot pain, leg pain and chest pain. 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 She does have calf tenderness, no risk factors for DVT. Will get an x-ray of the right foot to evaluate for fracture due to the recent trauma 1 week ago. EKG, labs for evaluation of chest pain. Item 2 ordered ultrasound of the right lower extremity to rule out DVT, however unfortunately ultrasound is not available at this time. I then switched to a D-dimer which was undetectable which is reassuring and helps rule against DVT/PE. Patient's EKG is a sinus rhythm rate of [address] segment elevations or depressions. No ectopy Differential Diagnosis Differential Diagnoses: The differential diagnosis associated with the presentation includes Foot pain Contusion Toe fracture DVT Calf strain Chest pain ACS Lab Data MDM Lab Attestation statement: I reviewed the patient's lab results. No leukocytosis, no anemia, normal platelet count. Patient's chloride is is of normal at 1 9, no other electrolyte abnormalities. Renal function is normal, LFTs within normal limits D-dimer is less than 150 which is undetectable troponin is less than 2.7. 11/13/23 22:59 11/13/23 22:59 Labs: Lab Results 11/13/23 11/13/23 Range/Units 22:59 23:16 WBC 9.5 (4.8-10.8) X10*3/uL RBC 4.19 L (4.20-5.50) X10*6/uL Hgb 14.1 (12.0-16.0) g/dl Hct 40.2 (37.0-47.0) % MCV 95.9 (80.0-98.0) fL MCH 33.7 H (27.0-33.0) pg MCHC 35.1 H (31.0-35.0) g/dl RDW 14.0 (11.0-16.0) % Plt Count 230 (160-400) X10*3/uL MPV 10.4 (9.4-12.3) fL Immature Gran % (Auto) 0.3 (0.0-0.4) % Neut % (Auto) 78.4 H (45-73) % Lymph % (Auto) 14.5 L (20-40) % [place] % (Auto) 5.4 (2-11) % Eos % (Auto) 0.8 (0-4) % Baso % (Auto) 0.6 (0-2) % Lymph # (Auto) 1.4 (1.2-4.9) X10*3/uL [place] # (Auto) 0.5 (0.1-1.2) X10*3/uL Eos # (Auto) 0.1 (0.0-0.4) X10*3/uL Baso # (Auto) 0.1 (0.0-0.2) X10*3/uL Abs Immat Gran (auto) 0.03 (0.00-0.03) X10*3/uL Absolute Neuts (auto) 7.5 (2.0-8.3) x10*3/uL Absolute Nucleated RBC 0.000 (0.0-0.012) X10*3/uL Nucleated RBC % (auto) 0.0 (0.0-0.2) /100WBC D-Dimer High Sensitivty < 150 NG/ML Sodium 142 (135-145) mmol/L Potassium 3.8 (3.3-5.1) mmol/L Chloride 109 H (96-108) mmol/L Carbon Dioxide 25 (22-29) mmol/L Anion Gap 12 (12-20) BUN 7 L (9-16) mg/dL Creatinine 0.67 (0.5-1.4) mg/dL Estim Creat Clear Calc 116.7 Estimated GFR > 60 Random Glucose 89 (60-115) mg/dL Calcium 9.7 (8.4-10.2) mg/dL Total Bilirubin 0.3 (0.0-1.0) mg/dL Direct Bilirubin 0.1 (0.0-0.5) mg/dL AST 20 (5-31) U/L ALT 13 (0-31) U/L Alkaline Phosphatase 90 (39-117) U/L Troponin I High Sens < 2.7 (<3.5-17.0) ng/L Total Protein 7.0 (6.5-8.0) g/dL Albumin 4.0 (3.5-5.0) g/dL Lipase 14 (8-78) U/L Discharge Plan Discharge Clinical Impression: Foot pain, right, Chest pain Patient Disposition: Home, Self-Care Instructions: Chest Pain (ED) Additional Instructions: Your x-ray was negative for fracture. Your blood work was indicative that he do not have a DVT or PE Your EKG was reassuring The remainder of your blood work was also reassuring. Use ibuprofen/Tylenol for pain Return for new or worsening symptoms Prescriptions: No Action potassium chloride 20 mEq tablet,ER particles/crystals 20 meq PO DAILY Qty: 10 0RF lorazepam [Ativan] 0.5 mg tablet 0.5 mg PO TID PRN (Reason: anxiety) Qty: 10 0RF Rx Instructions: patient may ask for partial fill ondansetron 4 mg tablet,disintegrating 4 mg PO Q8H PRN (Reason: nausea and vomiting) Qty: 20 0RF
[2023-11-14 00:15] VITALS: BP 103/62; PULSE 90; RESP 18; TEMP 36.8; O2SAT 95
--- NOTE | 2023-11-14 00:26 | PC.NURSE ---
pt reports continued pain, though admits feels safe to go home. pt ambulatory at discharge. pt calm and cooperative. pt provided with discharge packet. pt verbalized understanding of discharge plan
== END 2023-11-14 00:32 | disposition home or self-care (01) ==
PROVIDERS: Physician Assistant; Emergency Provider Student in an Organized Health Care Education/Training Program
DX: M79.671 Pain in right foot (principal); R07.89 Other chest pain; Z79.899 Other long term (current) drug therapy
CPT/HCPCS: 36415; 73630; 80048; 80076; 83690; 84484; 85025; 85379; 93005; 99284

== ENCOUNTER → 2023-11-13 22:42 | Outpatient (BNV) | payer OTHER, SELFPAY | PROVIDERS: Emergency Provider Student in an Organized Health Care Education/Training Program; Visit Provider Internal Medicine Cardiovascular Disease | DX: R94.31 Abnormal electrocardiogram [ECG] [EKG] (principal) | CPT/HCPCS: 93010 ==

== ENCOUNTER 2024-05-09 12:03 | Inpatient (IN) | payer MEDICAID, SELFPAY ==
--- NOTE | ~2024-05-09 | US_ITS ---
EXAMINATION: US EXTRACRANIAL CAROTID DUPLEX, BILATERAL CLINICAL INFORMATION: CTA finding of right carotid bifurcation intraluminal web. COMPARISON: CTA neck dated 05/09/2024. TECHNIQUE: Real-time ultrasound and Doppler techniques (integrating B-mode 2-D vascular images, Doppler spectral analysis and color-flow Doppler imaging) were utilized to interrogate the extracranial carotid arteries, the vertebral arteries and proximal subclavian arteries bilaterally. The degree of stenosis is determined by criteria similar to NASCET. FINDINGS: Right Side: 1. There is no atherosclerotic plaque seen in the bifurcation/proximal ICA region. 2. The common carotid artery PSV proximally is 109 cm/s and distally 101 cm/s. 3. The proximal internal carotid artery velocities are 91 cm/s systolic and 20 cm/s diastolic. 4. The proximal external carotid artery PSV is 100 cm/s. 5. The vertebral artery shows antegrade flow. 6. The subclavian artery waveforms are normal. Left Side: 1. There is no atherosclerotic plaque seen in the bifurcation/proximal ICA region. There is a small linear echogenic focus noted at the bulb portion. 2. The common carotid artery PSV proximally is 115 cm/s and distally 91 cm/s. 3. The proximal internal carotid artery velocities are 87 cm/s systolic and 29 cm/s diastolic. 4. The proximal external carotid artery PSV is 82 cm/s. 5. The vertebral artery shows antegrade flow. 6. The subclavian artery waveforms are 131. US/US carotid duplex BI IMPRESSION: 1. RIGHT: Normal right internal carotid artery without atherosclerotic plaque or hemodynamically significant stenosis. No convincing discrete web formation is noted of the right carotid bulb. 2. LEFT: Normal left internal carotid artery without atherosclerotic plaque or hemodynamically significant stenosis. A small linear echogenic focus is seen within the bulb portion, which could correspond with a faint intraluminal web, although none is noted on the left on the accompanying CT examination. 3. There is antegrade flow via the bilateral vertebral arteries.
--- NOTE | ~2024-05-09 | CT_ITS ---
EXAMINATION: CT HEAD WITHOUT CONTRAST CLINICAL INFORMATION: Left facial numbness and left thigh numbness. COMPARISON: CT head 11/15/2010. TECHNIQUE: Contiguous axial imaging was performed from the skull base to vertex without intravenous administration of contrast. This CT examination was performed using dose optimization techniques as appropriate, variously including the following: *Automated exposure control *Adjustment of mA and/or kV according to patient size (this includes techniques or standardized protocols for targeted exams where dose is matched to indication/reason for exam; i.e. extremities or head) *Use of iterative reconstruction technique DLP: 615 mGy-cm FINDINGS: There is no evidence of acute intracranial hemorrhage or edematous territorial infarction. There is no abnormal attenuation within the brain parenchyma. Jeffery-white matter differentiation is preserved. The ventricles are normal in size and configuration. No evidence for obstructive hydrocephalus. No abnormal mass effect or midline shift. No extra-axial fluid collections. No acute soft tissue or osseous abnormalities. The mastoid air cells and paranasal sinuses are clear. CT/CT head for stroke IMPRESSION: No evidence of acute intracranial hemorrhage or edematous territorial infarction. A [place] mental health aide (Eyad Lamas) confirmed receipt of these findings and recommendations with Rosaura RODRIGUEZ at 12:49 PM on 05/09/2024.
--- NOTE | ~2024-05-09 | CT_ITS ---
EXAMINATION: CT ANGIOGRAM HEAD CT ANGIOGRAM NECK CLINICAL INFORMATION: Reason for Exam Left facial droop, left leg weakness COMPARISON: None. TECHNIQUE: Test bolus sequences followed by intravenous administration 60 mL of Omnipaque 370. Helical imaging was performed in the axial plane from the aortic arch to the skull vertex. Delayed postcontrast imaging of the head was also performed. The data was processed at the nuclear cardiology technologist's workstation for generation of MIP sequences. Angled MIPs and volume rendered reformatted images were also generated at an offline 3D workstation. Stenoses are assessed in accordance with Castanon et al. Quantification of Carotid Stenosis on CT Angiography. AJR 2006. 27(1):13-19. [address] CT examination was performed using dose optimization techniques as appropriate, variously including the following: *Automated exposure control *Adjustment of mA and/or kV according to patient size (this includes techniques or standardized protocols for targeted exams where dose is matched to indication/reason for exam; i.e. extremities or head) *Use of iterative reconstruction technique DLP: 1475 mGy-cm FINDINGS: CT HEAD: Noncontrast intracranial findings discussed separately. No pathologic intra-axial enhancement or regional oligemia. CTA HEAD: No hemodynamically significant stenosis or occlusion in the anterior or posterior circulation. Extradural right PICA. right UPPER INSPECTOR. No aneurysms and no high flow vascular malformations. Timing of the contrast bolus allows assessment of the major dural venous sinuses, which all opacify normally CTA NECK: Classic 3 vessel branching pattern of the aortic arch. Origins of the great vessels are widely patent. The common carotid arteries are widely patent. The carotid bifurcations and bilateral internal carotid arteries are widely patent shelflike intraluminal filling defect emanating from the posterior wall at the right carotid bifurcation compatible with an intraluminal web. The left vertebral artery is dominant. The vertebral artery ostia are widely patent. Both vertebral arteries are widely patent throughout their extracranial cervical course. CT NECK: Several maxillary and mandibular dental caries. There is prominent adenoidal tonsillar hyperplasia with mucosal hyperenhancement, presumably reactive however can be correlated with patient's immune status. Associated narrowing of the nasopharynx. Bilateral mildly prominent level 2A lymph nodes, presumably reactive. CT/CT angio head neck stroke IMPRESSION: 1. No acute intracranial findings. 2. No acute arterial occlusion or hemodynamically significant stenosis within the head or neck. This critical result was discussed with Dr. Ohara at 1:53 PM on 05/09/2024 and it was ascertained that the content and urgency of the report was understood at the time of direct communication. 3. Shelflike intraluminal filling defect emanating from the posterior wall at the right carotid bifurcation compatible with an intraluminal web, which may serve as thrombogenic source and predispose to distal ipsilateral thromboemboli. 4. Several maxillary and mandibular dental caries. 5. Prominent adenoidal tonsillar hyperplasia with mucosal hyperenhancement narrowing the nasopharyngeal airway, presumably reactive however can be correlated with patient's immune status.
[2024-05-09 12:10] VITALS: BP 133/82; PULSE 105; RESP 18; TEMP 35.9; O2SAT 98; BMI 31.6
--- NOTE | 2024-05-09 12:10 | ED_ITS ---
HPI - General Adult General Chief complaint: Neuro Symptoms/Deficit Stated complaint: L side facial and leg numbness Time Seen by Provider: 05/09/24 12:24 Source: patient Mode of arrival: ambulatory Limitations: no limitations History of Present Illness ED Provider: Dr. Cr Ohara HPI narrative: His 43-year-old female history of GERD/esophagitis who presents emergency department for evaluation of viral-like illness for 2 weeks with symptoms and left facial numbness and left leg numbness with weakness that started at 09:00 hours when she woke up this morning. Patient states that she has been sick for about 2 weeks. She states initially she had a head cold with symptoms that included rhinorrhea and postnasal drip. She states that approximately 5 or 6 days prior to coming to the emergency department she developed nausea, vomiting and diarrhea. She states she was vomiting at least 4 times a day and she had greater than 10 episodes of diarrhea per day. She states that dye your was green and watery. She had no blood in the emesis or diarrhea. She states that 2 days prior her vomiting and diarrhea stopped. She states that she has had a cough that is productive of yellow sputum. She denied fever but had chills. She feels short of breath and dyspnea on exertion. She states she was feeling well when she went to bed last night at 23:00 hours. When she woke up this morning at 09:00 hours she had numbness to the left side of her face and numbness and weakness to her left thigh and lower leg. Patient states she waited approximately 3 hours to see if the numbness resolved. The numbness and weakness persisted therefore she came to the emergency department to be seen. Related Data Home Medications ?Medication ?Instructions ?Recorded ?Confirmed lansoprazole 30 mg capsule,delayed 30 mg PO DAILY@0630 05/09/24 05/09/24 release Allergies Allergy/AdvReac Type Severity Reaction Status Date / Time amoxicillin [AMOXICILLIN] Allergy Unknown HIVES Verified 05/09/24 12:15 aspirin [ASPIRIN] Allergy Unknown DISORIENTED Verified 05/09/24 12:15 azithromycin [Azithromycin] Allergy Unknown HIVES Verified 05/09/24 12:15 erythromycin base Allergy Unknown HIVES TO Verified 05/09/24 12:15 [Erythromycin Base] MYCINS Penicillins [PENICILLINS] Allergy Unknown HIVES Verified 05/09/24 12:15 sulfamethoxazole Allergy Nausea and Verified 05/09/24 12:15 [From Bactrim] Vomiting trimethoprim [From Bactrim] Allergy Nausea and Verified 05/09/24 12:15 Vomiting Review of Systems 2 Review of Systems: Yes all other systems are reviewed and are negative [facility] Past Medical History [facility] Narrative: Social history: Patient smokes 1/2 pack of cigarettes per day times many years. She denies alcohol use. She occasionally smokes marijuana. Medical History Anxiety Esophagitis GERD (gastroesophageal reflux disease) Social History Social History (Updated 04/21/22 @ 12:01 by Olimpia Lorenzo DO) Alcohol intake: former Patient Tobacco Use Status: Current someday Tobacco user Smoked in Last 30 Days: No Substance Use Type: Marijuana Substance Use Frequency: Chronic Longstanding Advance Directives: No Advance Directives Information Provided: Yes Physical Exam ED Vital Signs: Vital Signs - 24 hr 05/09/24 12:10 05/09/24 12:45 05/09/24 14:11 Temperature 96.6 F L 98.3 F 98.2 F Pulse Rate 105 H 91 81 Respiratory Rate 18 16 13 Blood Pressure 133/82 116/74 120/74 Pulse Oximetry 98 97 98 Oxygen Delivery Method Room Air Room Air Room Air BMI result Body Mass Index 31.6 Initial vital signs revealed an elevated heart rate of 105, otherwise unremarkable. Exam: General: Awake, alert in no distress Head: Normocephalic, atraumatic EENT: PERRL, Lids normal, sclera normal, conjunctiva normal, nose normal , ears normal, throat without erythema or exudates Neck: Supple, no adenopathy Lung: breath sounds symmetric, no wheezing, rales or rhonchi Chest: symmetric movement, nontender Heart: regular rate and rhythm, normal S1, S2 no murmurs or rubs Abdomen: soft, non-tender, nondistended, normal bowel sounds Back: no vertebral tenderness, no CVAT Extremities: no deformities, moves all extremities symmetrically Neuro: General: Awake, alert, oriented, normal speech Cranial nerves: Patient has a left facial droop, she was not able to hold air in her cheeks symmetrically. Cranial nerves are otherwise intact. Strength: Patient was able to hold both upper extremities against gravity with no drift. Patient is able to lift her left upper extremity against gravity but quickly has to put her leg down, she has decreased strength in her left lower extremity compared to her right lower extremity. Sensory: Patient has diminished light touch to her left face compared to the right but normal light touch in her left leg and right leg. Reflexes: Patient has 2+ reflexes that are symmetric Psych: Pleasant, cooperative NIH Stroke Scale Internal: Initial- Upon Arrival Level of Consciousness: Alert Level of Consciousness Questions: Answers both questions correctly Level of Consciousness Commands: Performs both tasks correctly Best Gaze: Normal Visual: No visual loss Facial Palsy: Minor paralyis Motor Arm (Right): No drift Motor Arm (Left): No drift Motor Leg (Right): Some effort against gravity Motor Leg (Left): No drift Limb Ataxia: Absent Sensory: Mild to moderate sensory loss Best Language: No aphasia Dysarthia: Normal Extinction and Inattention: No abnormality Score: 4 Course Course Course Narrative: This is a Rapid Medical Examination (RME) performed by Willi Valerio PA-C in triage. Full HPI, ROS, assessment and treatment plan per primary provider in the Main ED. 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 She also endorses fatigue and generalized weakness, w/ some difficultly walking due to the numbness in the left leg. No facial droop in triage, cranial nerves intact. No dysarthria. 4/5 strength in the left upper extremity and right lower extremity, otherwise 5/5 strength throughout. Plan: stroke protocol - d/w Dr. Ohara Medications Administered Discontinued Medications Generic Name Dose Route Start Last Admin Trade Name Freq PRN Reason Stop Dose Admin Sodium Chloride 1,000 mls @ 999 mls/hr 05/09/24 13:13 05/09/24 14:53 Ns IV 05/09/24 14:13 Infused .Q1H1M STA Infusion Magnesium Sulfate 2 gm in 50 mls @ 25 mls/hr 05/09/24 13:13 05/09/24 16:01 Magnesium Sulfate/H2o IV 05/09/24 15:12 Infused ONCE ONE Infusion Potassium Chloride 10 meq in 100 mls @ 100 mls/hr 05/09/24 13:30 05/09/24 16:01 Potassium Chloride/H20 IV 05/09/24 15:29 Infused Q1H DARIAN Infusion Iohexol 100 ml 05/09/24 13:44 05/09/24 13:45 Iohexol 350 Mg/Ml 100 Ml Infus..Btl IV 05/09/24 13:45 70 ml ONCE ONE Administration Potassium Chloride 40 meq 05/09/24 16:17 05/09/24 16:25 Potassium Chloride Packet 20 Meq Packet PO 05/09/24 16:18 Not Given ONCE ONE Medical Decision Making Medical Decision Making [facility] Narrative: 43-year-old female history of GERD/esophagitis who presents emergency department for evaluation of viral-like illness for 2 weeks with symptoms including nasal congestion, postnasal drip, nausea, vomiting 3 to 4 times a day, diarrhea multiple episodes per day. The diarrhea and vomiting subsided 2 days prior to evaluation. Last well-known time was last night at 23:00 hours when she went to bed. Patient woke up this morning at 09:00 hours with left facial numbness and left leg numbness with weakness that started. She states she waited 3 hours at home and the numbness to have resolved so she came to the emergency department for evaluation. Vital signs were normal. Neurologic exam did reveal left facial droop with diminished light touch the left side of the face and left lower extremity weakness compared to the right. Differential diagnosis: ?Includes but is not limited to stroke, TIA, Guillain- [place], electrolyte abnormalities , anemia Following evaluation was ordered: CBC, BMP, liver panel, PT/INR, PTT, TSH with reflex T4, urine drug screen, magnesium, urinalysis, urine test, CT scan of the brain without contrast, CT angiogram head and neck Course: My interpretation patient's laboratory evaluation is as follows: WBCs elevated 12,100. No anemia with an H&H of 14 and 40.0. PT/INR and PTT were normal. Potassium low 3.0 and Magnesium low 1.4-most likely due to her vomiting and diarrhea. LFTs were normal. TSH was normal at 0.83. Urine test was negative. Urinalysis was positive for blood. Microscopic was unremarkable. U tox was positive for THC patient states she does smoke marijuana. I did speak to the radiologist regarding the CT scan of the brain and CT angiogram of the head and neck. Both of these studies were normal. The patient woke up with her symptoms therefore she was outside of the therapeutic window for thrombolytics/TNK. The patient did present with in 24 hours of her symptoms but the CT angiogram of the head and neck revealed no retrieval clot. The patient's symptoms are concerning for acute stroke and acute viral syndrome. At this time I do not think that her symptoms are caused by Guillain-[place]. Patient did have a critically low potassium 10 mEq IV over 1 hour x4 and magnesium 2 g IV x1. 16:36 Initial verbal report of the CT scan angiogram of the head and neck was no acute finding however when I did review with the full report, patient may have a thrombotic source in the bifurcation of the right carotid. Patient does have an aspirin allergy, therefore I ordered a Plavix 75 mg now. I did share this information over tiger text with the hospital physician contract administrative assistant, Charan Ro. I did order oral potassium for the patient however she refused this and requested that we repeat her potassium and magnesium prior to giving her further treatment. These tests were ordered. I did discuss admission with the covering hospitalist, physician contract administrative assistant Charan Stoddard and he evaluated the patient in the emergency department in the person was admitted to the hospitalist service. 17:05 I did discuss the right carotid intraluminal web with our covering neurologist Dr. Ochoa. He recommended Plavix and MRI to determine if the patient has had an acute stroke. I did discuss this with the covering hospitalist the patient will be admitted for further management. I did discuss this information over tiger text with the covering hospitalists, Dr. Grover and Charan Ro Admission/Observation Consideration of admission/observation: Escalation of care including admission/observation considered Consult Healthcare Provider Management of the patient was discussed with: Hospitalist (Dr. Grover and physician assist Charan Stoddard) and Plastic Process Technician (Neurologist, Dr. Ochoa) Lab Data MDM Lab Attestation statement: I reviewed the patient's lab results. 05/09/24 12:36 05/09/24 12:36 Labs: Lab Results 05/09/24 05/09/24 05/09/24 Range/Units 12:28 12:30 12:36 WBC 12.1 H (4.8-10.8) X10*3/uL RBC 4.05 L (4.20-5.50) X10*6/uL Hgb 14.7 (12.0-16.0) g/dl Hct 40.0 (37.0-47.0) % MCV 98.8 H (80.0-98.0) fL MCH 36.3 H (27.0-33.0) pg MCHC 36.8 H (31.0-35.0) g/dl RDW 14.4 (11.0-16.0) % Plt Count 258 (160-400) X10*3/uL MPV 10.0 (9.4-12.3) fL Immature Gran % (Auto) 0.5 H (0.0-0.4) % Neut % (Auto) 69.9 (45-73) % Lymph % (Auto) 22.8 (20-40) % Crook % (Auto) 6.0 (2-11) % Eos % (Auto) 0.3 (0-4) % Baso % (Auto) 0.5 (0-2) % Lymph # (Auto) 2.8 (1.2-4.9) X10*3/uL Crook # (Auto) 0.7 (0.1-1.2) X10*3/uL Eos # (Auto) 0.0 (0.0-0.4) X10*3/uL Baso # (Auto) 0.1 (0.0-0.2) X10*3/uL Abs Immat Gran (auto) 0.06 H (0.00-0.03) X10*3/uL Absolute Neuts (auto) 8.4 H (2.0-8.3) x10*3/uL Absolute Nucleated RBC 0.000 (0.0-0.012) X10*3/uL Nucleated RBC % (auto) 0.0 (0.0-0.2) /100WBC PT 12.9 (11.1-13.3) SEC Whole Blood PT 12.9 (11.1-13.5) sec INR 1.1 (0.9-1.1) Whole Blood INR 1.1 (0.9-1.1) APTT 29.2 (26.0-36.8) SEC Sodium 142 (135-145) mmol/L Potassium 3.0 L (3.3-5.1) mmol/L Chloride 105 (96-108) mmol/L Carbon Dioxide 25 (22-29) mmol/L Anion Gap 15 (12-20) BUN 6 L (9-16) mg/dL Creatinine 0.68 (0.5-1.4) mg/dL Estim Creat Clear Calc 111.5 Estimated GFR > 60 POC Glucose 84 (60-115) mg/dL Random Glucose 95 (60-115) mg/dL Calcium 9.8 (8.4-10.2) mg/dL Magnesium 1.4 L* (1.6-2.6) mg/dL Total Bilirubin 0.5 (0.0-1.0) mg/dL Direct Bilirubin 0.3 (0.0-0.5) mg/dL AST 17 (5-31) U/L ALT 13 (0-31) U/L Alkaline Phosphatase 93 (39-117) U/L Total Protein 7.3 (6.5-8.0) g/dL Albumin 4.0 (3.5-5.0) g/dL TSH 0.83 (0.32-4.0) uIU/mL Urine Color Urine Appearance Urine pH (5.0-9.0) Ur Specific [place] (1.005-1.025) Urine Protein (Neg-Trace) mg/dL Urine Glucose (UA) (Negative) mg/dL Urine Ketones (Negative) mg/dL Urine Blood (Negative) Urine Nitrite (Negative) Ur Leukocyte Esterase (Negative) Urine RBC (0-2) /HPF Urine WBC (0-5) /HPF Ur Squamous Epith Cells (0-2) /HPF Urine Bacteria (None Seen) Hyaline Casts (0-2) /LPF Urine Test (NEGATIVE) Urine Opiates Screen (Not Detect) Ur Buprenorphine Scrn (Not Detect) ng/mL Ur Oxycodone Screen (Not Detect) ng/mL Urine Methadone Screen (Not Detect) ng/mL Urine Fentanyl Screen (Not Detect) Ur Barbiturates Screen (Not Detect) Ur Phencyclidine Scrn (Not Detect) Ur Amphetamines Screen (Not Detect) U Benzodiazepines Scrn (Not Detect) Urine Cocaine Screen (Not Detect) U Marijuana (THC) Screen (Not Detect) 05/09/24 Range/Units 12:49 WBC (4.8-10.8) X10*3/uL RBC (4.20-5.50) X10*6/uL Hgb (12.0-16.0) g/dl Hct (37.0-47.0) % MCV (80.0-98.0) fL MCH (27.0-33.0) pg MCHC (31.0-35.0) g/dl RDW (11.0-16.0) % Plt Count (160-400) X10*3/uL MPV (9.4-12.3) fL Immature Gran % (Auto) (0.0-0.4) % Neut % (Auto) (45-73) % Lymph % (Auto) (20-40) % Crook % (Auto) (2-11) % Eos % (Auto) (0-4) % Baso % (Auto) (0-2) % Lymph # (Auto) (1.2-4.9) X10*3/uL Crook # (Auto) (0.1-1.2) X10*3/uL Eos # (Auto) (0.0-0.4) X10*3/uL Baso # (Auto) (0.0-0.2) X10*3/uL Abs Immat Gran (auto) (0.00-0.03) X10*3/uL Absolute Neuts (auto) (2.0-8.3) x10*3/uL Absolute Nucleated RBC (0.0-0.012) X10*3/uL Nucleated RBC % (auto) (0.0-0.2) /100WBC PT (11.1-13.3) SEC Whole Blood PT (11.1-13.5) sec INR (0.9-1.1) Whole Blood INR (0.9-1.1) APTT (26.0-36.8) SEC Sodium (135-145) mmol/L Potassium (3.3-5.1) mmol/L Chloride (96-108) mmol/L Carbon Dioxide (22-29) mmol/L Anion Gap (12-20) BUN (9-16) mg/dL Creatinine (0.5-1.4) mg/dL Estim Creat Clear Calc Estimated GFR POC Glucose (60-115) mg/dL Random Glucose (60-115) mg/dL Calcium (8.4-10.2) mg/dL Magnesium (1.6-2.6) mg/dL Total Bilirubin (0.0-1.0) mg/dL Direct Bilirubin (0.0-0.5) mg/dL AST (5-31) U/L ALT (0-31) U/L Alkaline Phosphatase (39-117) U/L Total Protein (6.5-8.0) g/dL Albumin (3.5-5.0) g/dL TSH (0.32-4.0) uIU/mL Urine Color Yellow Urine Appearance Clear Urine pH 6.5 (5.0-9.0) Ur Specific [place] <= 1.005 (1.005-1.025) Urine Protein Negative (Neg-Trace) mg/dL Urine Glucose (UA) Negative (Negative) mg/dL Urine Ketones Negative (Negative) mg/dL Urine Blood Small (1+) H (Negative) Urine Nitrite Negative (Negative) Ur Leukocyte Esterase Negative (Negative) Urine RBC 0-2 (0-2) /HPF Urine WBC 0-5 (0-5) /HPF Ur Squamous Epith Cells 0-2 (0-2) /HPF Urine Bacteria None Seen (None Seen) Hyaline Casts 0-2 (0-2) /LPF Urine Test NEGATIVE (NEGATIVE) Urine Opiates Screen Not Detected (Not Detect) Ur Buprenorphine Scrn Not Detected (Not Detect) ng/mL Ur Oxycodone Screen Not Detected (Not Detect) ng/mL Urine Methadone Screen Not Detected (Not Detect) ng/mL Urine Fentanyl Screen Not Detected (Not Detect) Ur Barbiturates Screen Not Detected (Not Detect) Ur Phencyclidine Scrn Not Detected (Not Detect) Ur Amphetamines Screen Not Detected (Not Detect) U Benzodiazepines Scrn Not Detected (Not Detect) Urine Cocaine Screen Not Detected (Not Detect) U Marijuana (THC) Screen POSITIVE H (Not Detect) Independent Interpretation I performed an independent interpretation of an: EKG Interpretation: My independent interpretation patient's 12 EKG done at 12:39 hours is as follows: Normal sinus rhythm with a rate of 95, no ST segment elevation, less than [address] segment depression 2, 3, AVF and V4 through V6. Compared to an EKG dated 11/13/2023 these EKG changes are new however there are most likely caused by a low magnesium and low potassium. Radiology Impression Discussion of test interpretation with radiology: I have reviewed the radiologist's reading. Radiologist Impression: CT head for stroke IMPRESSION: No evidence of acute intracranial hemorrhage or edematous territorial infarction. A [place] salt maker (Eyad Lamas) confirmed receipt of these findings and recommendations with Rosaura RODRIGUEZ at 12:49 PM on 05/09/2024. Dictated By: Simona Rand CT angio head neck stroke IMPRESSION: 1. No acute intracranial findings. 2. No acute arterial occlusion or hemodynamically significant stenosis within the head or neck. This critical result was discussed with Dr. Ohara at 1:53 PM on 05/09/2024 and it was ascertained that the content and urgency of the report was understood at the time of direct communication. 3. Dual platelet therapy for stroke dual platelet therapy for stroke 4. Several maxillary and mandibular dental caries. 5. Prominent adenoidal tonsillar hyperplasia with mucosal hyperenhancement narrowing the nasopharyngeal airway, presumably reactive however can be correlated with patient's immune status. Dictated By: Florence Julian Critical Care Time Critical Care Time Critical Care Time: Yes Total Critical Care Time: 80 Attestation: Critical Care: The patient was critically ill with a high probability of imminent or life threatening deterioration. I spent greater than 30 minutes of discontinuous time evaluating the patient,delivering critical care at the bedside, discussing and evaluating pertinent data with consultants. Critical care time does not include time spent performing separately billable procedures or teaching. Total time spent performing critical care was 45 minutes. Discharge Plan Discharge Clinical Impression: Cerebrovascular accident, Facial droop due to acute stroke, Left leg weakness Patient Disposition: Admitted As Inpatient Print Language: Japanese
--- NOTE | 2024-05-09 12:17 | ECG_ITS ---
Test Reason : R/O STROKE Blood Pressure : / mmHG Vent. Rate : 095 BPM Atrial Rate : 095 BPM P-R Int : 124 ms QRS Dur : 076 ms QT Int : 352 ms P-R-T Axes : 038 031 032 degrees QTc Int : 442 ms Normal sinus rhythm ST & T wave abnormality, consider anterior ischemia Abnormal ECG When compared with ECG of 13-NOV-2023 22:42, T wave inversion now evident in Anterior leads Referred By: Carolann Valerio Electronically Signed By:CHAPIS PETERSEN
[2024-05-09 12:33] LABS: Prothrombin Time Whole Bld POC 12.9 sec (11.1-13.5); ~PT, ~INR - Anti Coag Clinic 1.1 (0.9-1.1)
[2024-05-09 12:34] LABS: Glucose, Whole Blood 84 mg/dL (60-115)
[2024-05-09 12:42] LABS: Basophils Absolute Auto 0.1 X10*3/uL (0.0-0.2); Basophils Percent Auto 0.5 % (0-2); Eosinophils Percent Auto 0.3 % (0-4); Hemoglobin 14.7 g/dl (12.0-16.0); Imm Gran Abs Auto 0.06 X10*3/uL (0.00-0.03); Imm Gran Pct Auto 0.5 % (0.0-0.4); Lymphocytes Absolute Auto 2.8 X10*3/uL (1.2-4.9); Lymphocytes Percent Auto 22.8 % (20-40); MANUAL DIFF FLAG NO; Mean Corpuscular HGB Conc 36.8 g/dl (31.0-35.0); Mean Corpuscular Hemoglobin 36.3 pg (27.0-33.0); Mean Corpuscular Volume 98.8 fL (80.0-98.0); Monocytes Absolute Auto 0.7 X10*3/uL (0.1-1.2); Neutrophils Absolute Auto 8.4 x10*3/uL (2.0-8.3); Neutrophils Percent Auto 69.9 % (45-73); Platelet Count 258 X10*3/uL (160-400); Red Blood Count 4.05 X10*6/uL (4.20-5.50); Red Cell Distribution Width 14.4 % (11.0-16.0); White Blood Count 12.1 X10*3/uL (4.8-10.8)
[2024-05-09 12:45] VITALS: BP 116/74; PULSE 91; RESP 16; TEMP 36.8; O2SAT 97
[2024-05-09 12:51] LABS: INTERNATIONAL NORM RATIO 1.1 (0.9-1.1); Prothrombin Time 12.9 SEC (11.1-13.3)
[2024-05-09 12:54] LABS: Partial Thromboplastin Time 29.2 SEC (26.0-36.8)
[2024-05-09 13:01] LABS: UPreg QC Valid YES; Urine Pregnancy NEGATIVE (NEGATIVE)
[2024-05-09 13:02] LABS: Appearance Urine Clear; Color Urine Yellow; Glucose Urine UA Negative (Negative); Leukocyte Esterase Urine Negative (Negative); Nitrite Urine Negative (Negative); PH 6.5 (5.0-9.0); Specific Gravity - Urine <= 1.005 (1.005-1.025); UMIC TRIGGER UACC YES; Urine Blood Small (1+) (Negative); Urine Ketones Negative (Negative); Urine Protein Negative (Neg-Trace)
[2024-05-09 13:07] LABS: Alanine Aminotransferase 13 U/L (0-31); Alkaline Phosphatase 93 U/L (39-117); Anion Gap 15 (12-20); Aspartate Amino Transferase 17 U/L (5-31); Bilirubin Direct 0.3 mg/dL (0.0-0.5); Bilirubin Total 0.5 mg/dL (0.0-1.0); Blood Urea Nitrogen 6 mg/dL (9-16); Calcium 9.8 mg/dL (8.4-10.2); Carbon Dioxide 25 mmol/L (22-29); Chloride 105 mmol/L (96-108); Creatinine Clr Calc Pharmacy 111.5; Estimated Glomerular Filt Rate > 60; Glucose Random 95 mg/dL (60-115); Sodium 142 mmol/L (135-145); Total Protein 7.3 g/dL (6.5-8.0)
[2024-05-09 13:08] LABS: Amphetamine Screen Urine Not Detected (Not Detect); Barbiturates, Urine Not Detected (Not Detect); Benzodiazepines Screen Urine Not Detected (Not Detect); Buprenorphine Scr Not Detected (Not Detect); Cannabinoid Screen Urine POSITIVE (Not Detect); Cocaine Screen Urine Not Detected (Not Detect); Fentanyl, urine Not Detected (Not Detect); Methadone Screen, Urine Not Detected (Not Detect); Opiate Screen Urine Not Detected (Not Detect); Oxycodone Screen Urine Not Detected (Not Detect); Phencyclidine Screen Urine Not Detected (Not Detect)
[2024-05-09 13:09] LABS: Magnesium 1.4 mg/dL (1.6-2.6)
[2024-05-09 13:13] LABS: Bacteria Urine None Seen (None Seen); Hyaline Casts Urine 0-2 /LPF (0-2); RBC Urine 0-2 /HPF (0-2); Squamous Epithelial Cell Urine 0-2 /HPF (0-2); WBC Urine 0-5 /HPF (0-5)
[2024-05-09 13:16] LABS: TSH reflex Free T4 0.83 uIU/mL (0.32-4.0)
[2024-05-09] MEDS: 0.9 % Sodium Chloride 1,000 ML 999 ML IV (13:44)
[2024-05-09] MEDS: iohexoL 350 MG/ML 100 ML INFUS..BTL IV (13:45)
[2024-05-09] MEDS: Potassium Chloride/H20 10 MEQ/100 ML PIGGYBACK 100 MEQ IV ×2 (13:45→14:47)
[2024-05-09] MEDS: Magnesium Sulfate/H2O 2 GM/50 ML PIGGYBACK IV (13:57)
[2024-05-09 14:11] VITALS: BP 120/74; PULSE 81; RESP 13; TEMP 36.8; O2SAT 98
--- NOTE | 2024-05-09 15:03 | PC.NURSE ---
Alert and oriented, reports feels less week but left side of face is still tingling
--- NOTE | 2024-05-09 16:28 | PC.NURSE ---
Patient declined PO K+ stating she just had two bags and wants lab work before she takes more. Provider aware
--- NOTE | 2024-05-09 16:31 | P.HPHOSP_ITS ---
History of Present Illness Date of Service: 05/09/24 Attending physician on admission: Annika Minaya Chief Complaint: Left-sided deficits Pt is a 43-year-old female with a PMH significant for?GERD/esophageal spasms who presents to the ED for evaluation of left-sided deficits noted since waking this morning. Patient states she was in her normal state of health last night at 23:00, but when she awoke this morning felt numbness and tingling on the left side of her face, upper right back, and left upper thigh. Numbness in her back soon resolved, but other deficits remained. Patient initially thought she had slept on her side wrong and attempted to wait out her symptoms for the next 3 hours. However, numbness in left upper thigh worsened and extended all the way down to her knee which then prompted her to come to the ED for further evaluation. Denies any headache or acute vision changes. No upper right extremity numbness or weakness. Denies ataxia, aphasia, or difficulty speaking. Has had bilateral calf pain for the past few days. Also notes he has had an upper respiratory illness for the past 2 weeks, primarily noting postnasal drip, nonproductive cough, sore throat, and rhinorrhea. 5-6 days ago patient also developed intense nausea and vomiting for 3-4 days. Has had reduced p.o. intake and reduced activity during this time. Nausea and vomiting resolved 2 days ago. Currently no chest pain/pressure, palpitations. Denies fever, chills, nausea, vomiting, abdominal pain. Of note, patient currently smokes marijuana and half a pack of cigarettes daily. Reports her mother had a stroke at age 26. In the ED pt was tachycardic up to 105, vitals otherwise stable. Labs were significant for leukocytosis of 12.1, potassium 3.0, and magnesium 1.4. CT of head found no evidence of intracranial hemorrhage edematous territorial infarction. CTA of head and neck found no acute intracranial findings and no acute arterial occlusion or hemodynamically significant stenosis within the head or neck. 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 EKG demonstrated normal sinus rhythm with T-wave inversions in V1 and V2, but no evidence of significant ST elevations or depressions. Pt was treated with IVF, potassium chloride 20 mEq eye V, and Mag sulfate 2 g IV. Pt will be admitted to the hospital for treatment and further evaluation of persistent left-sided deficits concerning for possible CVA. Review of Systems 2 Review of Systems: Numbness of left face and lower extremity Denies headache or acute vision changes No notable weakness upper or lower extremities bilaterally Denies ataxia, aphasia Previous URI symptoms x2 weeks, now mostly resolved N/V five days ago, resolved 2 days ago No chest pain/pressure or palpitations PMFSH Medical History Anxiety Esophagitis GERD (gastroesophageal reflux disease) Social History Household Members: Spouse and Family Housing: Apartment Do you presently have visiting nurse or other home services: No Alcohol intake: former Patient Tobacco Use Status: Current everyday Tobacco user Smoked in Last 30 Days: No Patient Interested in Nicotine Replacement: No Use of substances other than those prescribed or required for medical reasons: Yes Substance Use Type: Marijuana Substance Use Frequency: Chronic Longstanding Currently Displaying Signs/Symptoms of Drug Intoxication Withdrawal: No Have you been hit, kicked, punched, or otherwise hurt by someone within the past year? If so, by whom?: No Do you feel safe in your current relationship?: Yes Is there a partner from a previous relationship who is making you feel unsafe now?: No Are you made to feel afraid or neglected: No Advance Directives: No Advance Directives Information Provided: Yes Do you have a plan to hurt others: No Plan Nutrition Risks: Difficulty swallowing Patient : No Meds Allergies Allergy/AdvReac Type Severity Reaction Status Date / Time amoxicillin [AMOXICILLIN] Allergy Unknown HIVES Verified 05/09/24 12:15 aspirin [ASPIRIN] Allergy Unknown DISORIENTED Verified 05/09/24 12:15 azithromycin [Azithromycin] Allergy Unknown HIVES Verified 05/09/24 12:15 erythromycin base Allergy Unknown HIVES TO Verified 05/09/24 12:15 [Erythromycin Base] MYCINS Penicillins [PENICILLINS] Allergy Unknown HIVES Verified 05/09/24 12:15 sulfamethoxazole Allergy Nausea and Verified 05/09/24 12:15 [From Bactrim] Vomiting trimethoprim [From Bactrim] Allergy Nausea and Verified 05/09/24 12:15 Vomiting Home Medications ?Medication ?Instructions ?Recorded ?Confirmed ?Last Taken ?Type lansoprazole 30 mg capsule,delayed 30 mg PO DAILY@0630 05/09/24 05/09/24 05/09/24 History release Physical Exam 2 Vital Signs and Narrative: Vital Signs: Last Vital Signs Temp 98.2 F 05/09/24 14:11 Pulse 81 05/09/24 14:11 Resp 13 05/09/24 14:11 BP 120/74 05/09/24 14:11 Pulse Ox 98 05/09/24 14:11 O2 Del Method Room Air 05/09/24 14:11 BMI result Body Mass Index 31.6 Constitutional: Alert, in no acute distress. Mental Status: Oriented to person, place and time. Eyes: Pupils are equal, round, and reactive to light. Ear, Nose, and Throat: Oropharynx clear, mucous membranes moist. Ears and nose without deformities. Trachea midline. Respiratory: Clear to auscultation bilaterally. No wheezing, rales, or rhonchi. Cardiovascular: S1, S2 regular. No murmurs, rubs, or gallops. Gastrointestinal: Abdomen soft, non-tender, non-distended. Normal bowel sounds. Neurologic: Mild left-sided facial droop noted. Diminished 3/5 strength of left lower extremity. 5/5 strength of upper extremities bilaterally and RLE. Diminished sensation to light touch of left face. Absent sensation to light touch of lower extremity. Skin: Warm, dry. Extremities: No edema. Psychiatric: At times anxious and emotionally labile. Results Labs 05/10/24 05:35 05/10/24 05:35 Labs: Laboratory Results - last 24 hr 05/09/24 05/09/24 05/09/24 12:28 12:30 12:36 MCV 98.8 H MCH 36.3 H MCHC 36.8 H RDW 14.4 Plt Count 258 MPV 10.0 Immature Gran % (Auto) 0.5 H Neut % (Auto) 69.9 Lymph % (Auto) 22.8 [place] % (Auto) 6.0 Eos % (Auto) 0.3 Baso % (Auto) 0.5 Lymph # (Auto) 2.8 [place] # (Auto) 0.7 Eos # (Auto) 0.0 Baso # (Auto) 0.1 Abs Immat Gran (auto) 0.06 H Absolute Neuts (auto) 8.4 H Absolute Nucleated RBC 0.000 Nucleated RBC % (auto) 0.0 PT 12.9 Whole Blood PT 12.9 INR 1.1 Whole Blood INR 1.1 APTT 29.2 Anion Gap 15 Estim Creat Clear Calc 111.5 Estimated GFR > 60 POC Glucose 84 Random Glucose 95 Calcium 9.8 Magnesium 1.4 L* Total Bilirubin 0.5 Direct Bilirubin 0.3 AST 17 ALT 13 Alkaline Phosphatase 93 Total Protein 7.3 Albumin 4.0 TSH 0.83 Urine Color Urine Appearance Urine pH Ur Specific [place] Urine Protein Urine Glucose (UA) Urine Ketones Urine Blood Urine Nitrite Ur Leukocyte Esterase Urine RBC Urine WBC Ur Squamous Epith Cells Urine Bacteria Hyaline Casts Urine Test Urine Opiates Screen Ur Buprenorphine Scrn Ur Oxycodone Screen Urine Methadone Screen Urine Fentanyl Screen Ur Barbiturates Screen Ur Phencyclidine Scrn Ur Amphetamines Screen U Benzodiazepines Scrn Urine Cocaine Screen U Marijuana (THC) Screen 05/09/24 12:49 MCV MCH MCHC RDW Plt Count MPV Immature Gran % (Auto) Neut % (Auto) Lymph % (Auto) [place] % (Auto) Eos % (Auto) Baso % (Auto) Lymph # (Auto) [place] # (Auto) Eos # (Auto) Baso # (Auto) Abs Immat Gran (auto) Absolute Neuts (auto) Absolute Nucleated RBC Nucleated RBC % (auto) PT Whole Blood PT INR Whole Blood INR APTT Anion Gap Estim Creat Clear Calc Estimated GFR POC Glucose Random Glucose Calcium Magnesium Total Bilirubin Direct Bilirubin AST ALT Alkaline Phosphatase Total Protein Albumin TSH Urine Color Yellow Urine Appearance Clear Urine pH 6.5 Ur Specific [place] <= 1.005 Urine Protein Negative Urine Glucose (UA) Negative Urine Ketones Negative Urine Blood Small (1+) H Urine Nitrite Negative Ur Leukocyte Esterase Negative Urine RBC 0-2 Urine WBC 0-5 Ur Squamous Epith Cells 0-2 Urine Bacteria None Seen Hyaline Casts 0-2 Urine Test NEGATIVE Urine Opiates Screen Not Detected Ur Buprenorphine Scrn Not Detected Ur Oxycodone Screen Not Detected Urine Methadone Screen Not Detected Urine Fentanyl Screen Not Detected Ur Barbiturates Screen Not Detected Ur Phencyclidine Scrn Not Detected Ur Amphetamines Screen Not Detected U Benzodiazepines Scrn Not Detected Urine Cocaine Screen Not Detected U Marijuana (THC) Screen POSITIVE H Imaging Radiologist's Impressions: Impressions Head CT 05/09/24 12:24 IMPRESSION: No evidence of acute intracranial hemorrhage or edematous territorial infarction. A [place] certified medical assistant (Eyad Lamas) confirmed receipt of these findings and recommendations with Rosaura RODRIGUEZ at 12:49 PM on 05/09/2024. Head/Neck CTA 05/09/24 13:30 IMPRESSION: 1. No acute intracranial findings. 2. No acute arterial occlusion or hemodynamically significant stenosis within the head or neck. This critical result was discussed with Dr. Ohara at 1:53 PM on 05/09/2024 and it was ascertained that the content and urgency of the report was understood at the time of direct communication. 3. Shelflike intraluminal filling defect emanating from the posterior wall at the right carotid bifurcation compatible with an intraluminal web, which may serve as thrombogenic source and predispose to distal ipsilateral thromboemboli. 4. Several maxillary and mandibular dental caries. 5. Prominent adenoidal tonsillar hyperplasia with mucosal hyperenhancement narrowing the nasopharyngeal airway, presumably reactive however can be correlated with patient's immune status. Assessment and Plan (1) Left leg weakness: Status: Acute Plan Pt is a 43-year-old female with a PMH significant for?GERD/esophageal spasms who presents to the ED for evaluation of left-sided deficits noted since waking this morning. Pt will be admitted to the hospital for treatment and further evaluation of persistent left-sided deficits concerning for possible CVA. 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 30 minutes prior to MRI GERD/esophageal spasms Continue home lansoprazole Patient unable to tolerate omeprazole Nicotine dependence Smokes half a pack daily Nicotine replacement therapy Full Code Attending:?Dr. Minaya DVT Prophylaxis: Lovenox Pt will require a hospitalization of at least two nights for treatment of?persistent left-sided deficits concerning for possible acute CVA. Patient will require close monitoring of cardiac function, as well as specialist consultation with Neurology and additional workup with MRI. Quality Stroke Does the patient have a stroke diagnosis?: No Reason for No Anti-thrombotic by Day Two: Contraindicated (Pt outside of tNK therapeutic window.) VTE Prior VTE?: No VTE Risk Level:: Medical - moderate - high VTE Device Contraindication: Treatment Not Indicated VTE Drug Contraindication: N/A - Med Ordered
--- NOTE | 2024-05-09 16:55 | PHA.MEDREC ---
Pharmacy Consult ? Medication Reconciliation Pharmacy has completed the medication reconciliation.
--- NOTE | 2024-05-09 17:18 | PC.NURSE ---
Patient requesting IV in right ac to be removed because it was painful, stating if she needs 2 ivs a second IV could be placed. IV in right forearm removed. Tech went into room patient asking for IV in left AC to be removed. Tech stating she cant remove IV, patient pulled out IV in front of tech.
[2024-05-09] MEDS: Clopidogrel Bisulfate 75 MG TABLET PO (17:31)
--- NOTE | 2024-05-09 17:32 | PC.NURSE ---
Patient declined lovonox stating MD only told her about plavix and she is not taking anything else right now, AWARE
--- NOTE | 2024-05-09 17:38 | MHC.EDTECH ---
first attempt to draw pt's blood, pt requested for her IV to be removed, tech explained to the pt that they would have to get a nurse. pt took it apon themselves to rip out the IV. rn notified.
[2024-05-09 19:19] VITALS: BP 109/56; PULSE 76; RESP 16; TEMP 36.8; O2SAT 99
[2024-05-09 20:00] VITALS: BP 102/69; PULSE 75; RESP 18; TEMP 36.4; O2SAT 98
--- NOTE | 2024-05-09 22:56 | PC.NURSE ---
Patient refusing IV. IV removed per patient request. MD notified and aware. Patient on tele and has moderate weakness to left leg. Patient wants to be able to take showers when anxious. MD notified and aware.
[2024-05-09 23:58] VITALS: BP 121/73; PULSE 76; RESP 18; TEMP 36.4; O2SAT 98
[2024-05-10 04:00] VITALS: BP 125/72; PULSE 78; RESP 18; TEMP 36; O2SAT 96
[2024-05-10 06:15] LABS: Hematocrit 36.1 % (37.0-47.0); Hemoglobin 13.3 g/dl (12.0-16.0); Mean Corpuscular HGB Conc 36.8 g/dl (31.0-35.0); Mean Corpuscular Hemoglobin 36.8 pg (27.0-33.0); Mean Platelet Volume 10.8 fL (9.4-12.3); Platelet Count 251 X10*3/uL (160-400); Red Blood Count 3.61 X10*6/uL (4.20-5.50); Red Cell Distribution Width 14.6 % (11.0-16.0); White Blood Count 9.4 X10*3/uL (4.8-10.8)
[2024-05-10 06:34] LABS: Anion Gap 12 (12-20); Blood Urea Nitrogen 6 mg/dL (9-16); Carbon Dioxide 22 mmol/L (22-29); Chloride 111 mmol/L (96-108); Cholesterol 88 mg/dL (<200); Creatinine Clr Calc Pharmacy 118.5; Estimated Glomerular Filt Rate > 60; Glucose Random 88 mg/dL (60-115); HDL Cholesterol 31 mg/dL (>40); LDL Cholesterol Calculated 47 mg/dL (<100); Magnesium 1.8 mg/dL (1.6-2.6); Sodium 142 mmol/L (135-145); Triglycerides 51 mg/dL (<150)
[2024-05-10 07:58] LABS: Estimated Average Glucose 91 mg/dL; Hemoglobin A1c % 4.8 % (<6.0)
[2024-05-10 08:00] VITALS: BP 104/57; PULSE 78; RESP 18; TEMP 35.8; O2SAT 98
[2024-05-10] MEDS: Clopidogrel Bisulfate 75 MG TABLET PO (09:25)
[2024-05-10] MEDS: Potassium Chloride ER 20 MEQ TAB.ER.PRT 40 MEQ PO (09:25)
--- NOTE | 2024-05-10 09:43 | P.CNNE_ITS ---
History of Present Illness Data of Consult Service Date: 05/10/24 Primary Care Provider: Unknown Physician HPI Reason for consult: Numbness 43 years old woman who was having probably a viral syndrome and was coughing for a while and also was having diarrhea came to hospital yesterday after she woke up yesterday and found her left side of the face and leg to be numb. Her arm was also numb. At 1 point she had weakness of left leg. In emergency room she was evaluated and was not considered a candidate for TNK type of treatment. On the other hand her CTA revealed right carotid disease, which potentially was embologenic and she was treated with Plavix. Now her symptoms were resolved. She said that she usually would get wanted to days of headache in a month and headaches were not a significant problem but after taking Plavix yesterday she had a headache. Review of Systems 2 Review of Systems: As per HPI [facility] Past Medical History Medical History Anxiety Esophagitis GERD (gastroesophageal reflux disease) Social History Social History Household Members: Spouse and Family Housing: Apartment Do you presently have visiting nurse or other home services: No Alcohol intake: former Patient Tobacco Use Status: Current everyday Tobacco user Smoked in Last 30 Days: No Patient Interested in Nicotine Replacement: No Use of substances other than those prescribed or required for medical reasons: Yes Substance Use Type: Marijuana Substance Use Frequency: Chronic Longstanding Currently Displaying Signs/Symptoms of Drug Intoxication Withdrawal: No Have you been hit, kicked, punched, or otherwise hurt by someone within the past year? If so, by whom?: No Do you feel safe in your current relationship?: Yes Is there a partner from a previous relationship who is making you feel unsafe now?: No Are you made to feel afraid or neglected: No Advance Directives: No Advance Directives Information Provided: Yes Do you have a plan to hurt others: No Plan Nutrition Risks: Difficulty swallowing Patient : No Meds Allergies Allergy/AdvReac Type Severity Reaction Status Date / Time amoxicillin [AMOXICILLIN] Allergy Unknown HIVES Verified 05/09/24 12:15 aspirin [ASPIRIN] Allergy Unknown DISORIENTED Verified 05/09/24 12:15 azithromycin [Azithromycin] Allergy Unknown HIVES Verified 05/09/24 12:15 erythromycin base Allergy Unknown HIVES TO Verified 05/09/24 12:15 [Erythromycin Base] MYCINS Penicillins [PENICILLINS] Allergy Unknown HIVES Verified 05/09/24 12:15 sulfamethoxazole Allergy Nausea and Verified 05/09/24 12:15 [From Bactrim] Vomiting trimethoprim [From Bactrim] Allergy Nausea and Verified 05/09/24 12:15 Vomiting Active Medications: Current Medications Acetaminophen (Acetaminophen 325 Mg Tablet) 650 mg PO Q6H PRN PRN Reason: Pain, Mild (Pain Scale 1-3) Atorvastatin Calcium (Atorvastatin Calcium 40 Mg Tablet) 40 mg PO BEDTIME [facility] Last Admin: 05/09/24 22:38 Dose: Not Given Benzonatate (Benzonatate 100 Mg Capsule) 100 mg PO TID PRN PRN Reason: Cough Clopidogrel Bisulfate (Clopidogrel Bisulfate 75 Mg Tablet) 75 mg PO DAILY [facility] Last Admin: 05/10/24 09:25 Dose: 75 mg Docusate Sodium (Docusate Sodium 100 Mg Capsule) 100 mg PO DAILY PRN PRN Reason: Constipation Enoxaparin Sodium (Enoxaparin Sodium 40 Mg/0.4 Ml Syringe) 40 mg SUBCUT Q24H [facility] Last Admin: 05/09/24 17:31 Dose: Not Given Lorazepam (Lorazepam 1 Mg Tablet) 1 mg PO ONCE PRN PRN Reason: 30 minutes prior to MRI Lorazepam (Lorazepam 2 Mg/Ml Vial) 0.5 mg IM Q6H PRN PRN Reason: anxiety/restlessness Melatonin (Melatonin 3 Mg Tablet) 6 mg PO BEDTIME PRN PRN Reason: Insomnia Nicotine (Nicotine 21 Mg Patch.Td24) 21 mg TRANSDERMA DAILY PRN PRN Reason: Nicotine Cravings Pt Own (Lansoprazole (30 Mg)) 30 mg PO DAILY@0630 [facility] Last Admin: 05/10/24 06:41 Dose: 30 mg Ondansetron HCl (Ondansetron Hcl 4 Mg/2 Ml Vial) 4 mg IVPUSH Q8H PRN PRN Reason: Nausea and Vomiting Sodium Chloride (0.9 % Sodium Chloride Flush 3 Ml Syringe) 3 ml IVFLUSH [facility] Last Admin: 05/10/24 09:38 Dose: Not Given Sodium Chloride (0.9 % Sodium Chloride Flush 3 Ml Syringe) 3 ml IVFLUSH [facility] Last Admin: 05/10/24 09:39 Dose: Not Given Home Medications ?Medication ?Instructions ?Recorded ?Confirmed ?Last Taken ?Type lansoprazole 30 mg capsule,delayed 30 mg PO DAILY@0630 05/09/24 05/09/24 05/09/24 History release Physical Exam 2 Vital Signs: Vital Signs: Last Vital Signs Temp 96.5 F L 05/10/24 08:00 Pulse 78 05/10/24 08:00 Resp 18 05/10/24 08:00 BP 104/57 L 05/10/24 08:00 Pulse Ox 98 05/10/24 08:00 O2 Del Method Room Air 05/10/24 08:00 BMI result Body Mass Index 31.6 Neuro: Other: She is alert and awake with normal spontaneity of speech fluency comprehension and affect. Face is symmetrical. Visual romero are full. There is no pronator drift. Deep tendon reflexes are trace to 1+ with flexor plantars. Speech is normal. Results Labs 05/10/24 05:35 05/10/24 05:35 Labs: Short CBC 05/09/24 05/10/24 Range/Units 12:36 05:35 WBC 12.1 H 9.4 (4.8-10.8) X10*3/uL Hgb 14.7 13.3 (12.0-16.0) g/dl Hct 40.0 36.1 L (37.0-47.0) % Plt Count 258 251 (160-400) X10*3/uL BMP 05/09/24 05/10/24 12:36 05:35 Sodium 142 142 Potassium 3.0 L 3.0 L Chloride 105 111 H Carbon Dioxide 25 22 BUN 6 L 6 L Creatinine 0.68 0.64 Calcium 9.8 9.0 D Liver Function 05/09/24 Range/Units 12:36 Total Bilirubin 0.5 (0.0-1.0) mg/dL Direct Bilirubin 0.3 (0.0-0.5) mg/dL AST 17 (5-31) U/L ALT 13 (0-31) U/L Alkaline Phosphatase 93 (39-117) U/L Albumin 4.0 (3.5-5.0) g/dL Urine 05/09/24 Range/Units 12:49 Urine Color Yellow Urine Appearance Clear Urine pH 6.5 (5.0-9.0) Ur Specific [place] <= 1.005 (1.005-1.025) Urine Protein Negative (Neg-Trace) mg/dL Urine Glucose (UA) Negative (Negative) mg/dL CTA of brain did not reveal any obvious abnormality. CTA of brain and neck revealed right carotid disease. No acute intracranial findings. 2. No acute arterial occlusion or hemodynamically significant stenosis within the head or neck. This critical result was discussed with Dr. Ohara at 1:53 PM on 05/09/2024 and it was ascertained that the content and urgency of the report was understood at the time of direct communication. 3. Shelflike intraluminal filling defect emanating from the posterior wall at the right carotid bifurcation compatible with an intraluminal web, which may serve as thrombogenic source and predispose to distal ipsilateral thromboemboli. 4. Several maxillary and mandibular dental caries. 5. Prominent adenoidal tonsillar hyperplasia with mucosal hyperenhancement narrowing the nasopharyngeal airway, presumably reactive however can be correlated with patient's immune status. Assessment and Plan (1) Cerebral infarction: Qualifiers: Cerebral infarction mechanism: embolism Precerebral and cerebral artery: middle cerebral artery Laterality of affected vessel: right Qualified Code(s): I63.411 - Cerebral infarction due to embolism of right middle cerebral artery Status: Acute 43 years old woman who probably had right carotid vascular injury from repeated coughing resulting in embolus in right middle cerebral artery area. Now her symptoms were resolved. My recommendation is to continue Plavix for 3 months. If possible, noncontrast MRI of brain is recommended. Procedures Date of Service Date of Service: 05/10/24
[2024-05-10] MEDS: LORazepam 1 MG TABLET PO (10:22)
--- NOTE | 2024-05-10 10:25 | P.PNIM_ITS ---
Subjective Subjective Date of Service: 05/10/24 Interval History: tingling on L side of face resolved; does not have facial droop tingling on L upper thigh improving and strength improving though still weak no other symptoms significant family history of early-onset stroke Review of Systems Review of Systems: Yes all other systems are reviewed and are negative Physical Exam 2 Vital Signs: Vital Signs: Last Vital Signs Temp 96.5 F L 05/10/24 08:00 Pulse 78 05/10/24 08:00 Resp 18 05/10/24 08:00 BP 104/57 L 05/10/24 08:00 Pulse Ox 98 05/10/24 08:00 O2 Del Method Room Air 05/10/24 08:00 BMI result Body Mass Index 31.6 Gen: in no acute distress HEENT: sclera anicteric, moist mucus membranes Neck: supple Lungs: clear to auscultation bilaterally Heart: regular rate and rhythm, no murmurs Abd: soft, non-tender, non-distended Ext: no edema Skin: warm/well-perfused Neuro: alert and oriented x3, no facial droop, no pronator drift, 4/5 strength in the proximal LLE Psych: appropriate affect Objective Data Active Medications Acetaminophen (Acetaminophen 325 Mg Tablet) 650 mg PO Q6H PRN PRN Reason: Pain, Mild (Pain Scale 1-3) Atorvastatin Calcium (Atorvastatin Calcium 40 Mg Tablet) 40 mg PO BEDTIME [facility] Last Admin: 05/09/24 22:38 Dose: Not Given Documented By: LEILA Non-Admin Reason: Patient Refused Benzonatate (Benzonatate 100 Mg Capsule) 100 mg PO TID PRN PRN Reason: Cough Clopidogrel Bisulfate (Clopidogrel Bisulfate 75 Mg Tablet) 75 mg PO DAILY [facility] Last Admin: 05/10/24 09:25 Dose: 75 mg Documented By: DAMON Docusate Sodium (Docusate Sodium 100 Mg Capsule) 100 mg PO DAILY PRN PRN Reason: Constipation Enoxaparin Sodium (Enoxaparin Sodium 40 Mg/0.4 Ml Syringe) 40 mg SUBCUT Q24H [facility] Last Admin: 05/09/24 17:31 Dose: Not Given Documented By: PARISA Non-Admin Reason: Patient Refused Lorazepam (Lorazepam 1 Mg Tablet) 1 mg PO ONCE PRN PRN Reason: 30 minutes prior to MRI Last Admin: 05/10/24 10:22 Dose: 1 mg Documented By: DAMON Lorazepam (Lorazepam 2 Mg/Ml Vial) 0.5 mg IM Q6H PRN PRN Reason: anxiety/restlessness Melatonin (Melatonin 3 Mg Tablet) 6 mg PO BEDTIME PRN PRN Reason: Insomnia Nicotine (Nicotine 21 Mg Patch.Td24) 21 mg TRANSDERMA DAILY PRN PRN Reason: Nicotine Cravings Pt Own (Lansoprazole (30 Mg)) 30 mg PO DAILY@0630 [facility] Last Admin: 05/10/24 06:41 Dose: 30 mg Documented By: LEILA Ondansetron HCl (Ondansetron Hcl 4 Mg/2 Ml Vial) 4 mg IVPUSH Q8H PRN PRN Reason: Nausea and Vomiting Sodium Chloride (0.9 % Sodium Chloride Flush 3 Ml Syringe) 3 ml IVFLUSH [facility] Last Admin: 05/10/24 09:38 Dose: Not Given Documented By: DAMON Non-Admin Reason: No Access Sodium Chloride (0.9 % Sodium Chloride Flush 3 Ml Syringe) 3 ml IVFLUSH [facility] Last Admin: 05/10/24 09:39 Dose: Not Given Documented By: DAMON Non-Admin Reason: No Access Labs 05/10/24 05:35 05/10/24 05:35 Labs: Laboratory Results - last 24 hr 05/09/24 05/09/24 05/09/24 12:28 12:30 12:36 MCV 98.8 H MCH 36.3 H MCHC 36.8 H RDW 14.4 Plt Count 258 MPV 10.0 Immature Gran % (Auto) 0.5 H Neut % (Auto) 69.9 Lymph % (Auto) 22.8 [place] % (Auto) 6.0 Eos % (Auto) 0.3 Baso % (Auto) 0.5 Lymph # (Auto) 2.8 [place] # (Auto) 0.7 Eos # (Auto) 0.0 Baso # (Auto) 0.1 Abs Immat Gran (auto) 0.06 H Absolute Neuts (auto) 8.4 H Absolute Nucleated RBC 0.000 Nucleated RBC % (auto) 0.0 PT 12.9 Whole Blood PT 12.9 INR 1.1 Whole Blood INR 1.1 APTT 29.2 Anion Gap 15 Estim Creat Clear Calc 111.5 Estimated GFR > 60 POC Glucose 84 Random Glucose 95 Estimat Average Glucose Hemoglobin A1c % Calcium 9.8 Magnesium 1.4 L* Total Bilirubin 0.5 Direct Bilirubin 0.3 AST 17 ALT 13 Alkaline Phosphatase 93 Total Protein 7.3 Albumin 4.0 Triglycerides Cholesterol LDL Cholesterol, Calc HDL Cholesterol TSH 0.83 Urine Color Urine Appearance Urine pH Ur Specific [place] Urine Protein Urine Glucose (UA) Urine Ketones Urine Blood Urine Nitrite Ur Leukocyte Esterase Urine RBC Urine WBC Ur Squamous Epith Cells Urine Bacteria Hyaline Casts Urine Test Urine Opiates Screen Ur Buprenorphine Scrn Ur Oxycodone Screen Urine Methadone Screen Urine Fentanyl Screen Ur Barbiturates Screen Ur Phencyclidine Scrn Ur Amphetamines Screen U Benzodiazepines Scrn Urine Cocaine Screen U Marijuana (THC) Screen 05/09/24 05/10/24 12:49 05:35 MCV 100.0 H MCH 36.8 H MCHC 36.8 H RDW 14.6 Plt Count 251 MPV 10.8 Immature Gran % (Auto) Neut % (Auto) Lymph % (Auto) [place] % (Auto) Eos % (Auto) Baso % (Auto) Lymph # (Auto) [place] # (Auto) Eos # (Auto) Baso # (Auto) Abs Immat Gran (auto) Absolute Neuts (auto) Absolute Nucleated RBC 0.000 Nucleated RBC % (auto) 0.0 PT Whole Blood PT INR Whole Blood INR APTT Anion Gap 12 Estim Creat Clear Calc 118.5 Estimated GFR > 60 POC Glucose Random Glucose 88 Estimat Average Glucose 91 Hemoglobin A1c % 4.8 Calcium 9.0 D Magnesium 1.8 Total Bilirubin Direct Bilirubin AST ALT Alkaline Phosphatase Total Protein Albumin Triglycerides 51 Cholesterol 88 LDL Cholesterol, Calc 47 HDL Cholesterol 31 L TSH Urine Color Yellow Urine Appearance Clear Urine pH 6.5 Ur Specific [place] <= 1.005 Urine Protein Negative Urine Glucose (UA) Negative Urine Ketones Negative Urine Blood Small (1+) H Urine Nitrite Negative Ur Leukocyte Esterase Negative Urine RBC 0-2 Urine WBC 0-5 Ur Squamous Epith Cells 0-2 Urine Bacteria None Seen Hyaline Casts 0-2 Urine Test NEGATIVE Urine Opiates Screen Not Detected Ur Buprenorphine Scrn Not Detected Ur Oxycodone Screen Not Detected Urine Methadone Screen Not Detected Urine Fentanyl Screen Not Detected Ur Barbiturates Screen Not Detected Ur Phencyclidine Scrn Not Detected Ur Amphetamines Screen Not Detected U Benzodiazepines Scrn Not Detected Urine Cocaine Screen Not Detected U Marijuana (THC) Screen POSITIVE H Assessment and Plan (1) Cerebral infarction: Status: Acute Plan d2 43yo F with GERD/nutcracker esophagus presenting after waking up with L facial and upper thigh paresthesias, then developed LUE weakness Significant family history of early stroke: her mother had a major stroke at the age of 26 and her maternal grandmother had one in her 40s CT angio of the neck showed 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 - 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; will discuss with Neuro and consult Vasc Surg - continue telemetry [no arrhythmias noted], TTE with bubble tomorrow - continue clopidogrel + atorvastatin; pt has severe ASA allergy - PT/OT evaluations tomorrow anxiety - pre-MRI lorazepam x1 dose tobacco abuse - declines NRT; strongly urged to quit smoking GERD/jackhammer esophagus - continue PPI VTE ppx - LMWH dispo - anticipate home with PT services tomorrow In my clinical judgment, the patient requires continued inpatient hospitalization for the following reasons: complete stroke workup with consultations Total time managing care of this patient today: 50 minutes. Quality Stroke Does the patient have a stroke diagnosis?: No Reason for No Anti-thrombotic by Day Two: Contraindicated (Pt outside of tNK therapeutic window.) VTE Prior VTE?: No VTE Risk Level:: Medical - moderate - high VTE Device Contraindication: Treatment Not Indicated VTE Drug Contraindication: N/A - Med Ordered
[2024-05-10 12:00] VITALS: BP 121/88; PULSE 88; RESP 18; TEMP 35.8; O2SAT 98
--- NOTE | 2024-05-10 12:28 | MHC.CM.PN ---
PT REPORTS SHE LIVES WITH HER S/O AND 10 YO SON SHE IS INDEPENDENT WITH CARE, HAS NO SERVICES AND NO DME SHE DECLINES TO COMPLETE A HCP PCP: IGLESIA UNDERWOOD DCP: HOME NO SERVICES VIA PRIVATE TRANSPORT
[2024-05-10 13:30] VITALS: TEMP 36.6
[2024-05-10 16:00] VITALS: BP 116/56; PULSE 73; RESP 18; TEMP 36.2; O2SAT 95
[2024-05-10 20:00] VITALS: BP 122/58; PULSE 70; RESP 18; TEMP 36.6; O2SAT 97
--- NOTE | 2024-05-10 20:35 | P.EN_ITS ---
Event Note Date of Service: 05/10/24 Event Note: Was asked by nursing to speak with patient who was becoming increasingly agitated and anxious. Patient particularly concerned about feeling like she is constantly bombarded with new medications that she has no idea she is being asked to take. Also upset she has not getting her lansoprazole twice a day. Of note, patient only has 2 new scheduled medications: Plavix and atorvastatin 10 mg. Attempted to explain to patient reasoning behind medications, though p atient continued to be increasingly agitated and expressed her belief that all clinicians and nursing were contradicting one another. Will continue Plavix and change patient's home lansoprazole to b.i.d., and will otherwise discontinue atorvastatin and all other p.r.n. medications. Time Spent With Patient Time: Total time managing care of this patient today ____ minutes.
[2024-05-11] VITALS: BP 127/71; PULSE 61; RESP 16; TEMP 37; O2SAT 98
[2024-05-11 03:43] VITALS: BP 116/56; PULSE 63; RESP 16; TEMP 36.2; O2SAT 95
--- NOTE | 2024-05-11 07:00 | CA_ITS ---
Transthoracic Echocardiogram Patient (Last, First, Middle): Leah Wright L Gender: Female Date of : 1980 Age: 43 Procedure Date: 05/11/2024 Procedure Type: Transthoracic Echocardiogram Location: [facility] [place] Height: 162.56 cm Weight: 83.46 kg BSA: 1.89 m2 Heart Rate: 72 bpm BP: 116 / 56 mmHg Insurance Healthcare Representative: LOLA Referring MD: Charan RODRIGUEZ Zoology Technical Officer: Remy Deluca MD Symptoms: Left-sided deficits, ?CVA with Bubble Study Quality: Pt refused IV for bubble/definity ECG Rhythm: Sinus Conclusions: - 1. Normal LV systolic and diastolic function 2. Cardiac valvular Dopplers within normal limits 3. Intracardiac shunting not ruled out on this study Findings Procedure Information The patient declines contrast. Left Ventricle Normal left ventricular size, thickness, and systolic function. The visually estimated ejection fraction is between 60-65%. Diastolic function is normal for age. Right Ventricle Normal right ventricular cavity size and systolic function. Atria Both atria are normal in size. Interatrial shunt cannot be excluded. Aortic Valve The aortic valve structure and function is likely normal. There is no aortic valve stenosis. There is no aortic valve regurgitation. Mitral Valve Normal mitral valve structure and function. There is trace mitral valve regurgitation. There is no mitral valve stenosis. Pulmonic Valve The pulmonic valve was not well visualized. Tricuspid Valve Likely normal tricuspid valve structure and function. Tricuspid regurgitation envelope is inadequate for calculation of right ventricular systolic pressure. Normal right atrial pressure. Great Vessels The pulmonary artery was not well visualized. There is no dilatation of the ascending aorta measuring 2.90 cm. Venous The inferior vena cava is normal in size and collapses greater than 50% with inspiration. Pericardium/Pleural There is no evidence of pericardial effusion. Prior Study Comparison No prior study available for comparison. Recommendations, Care & Conclusions Recommend a SHYANN. Measurements 2D Linear Measurements IVSd: 0.89 0.6-0.9/0.6-1.0 cm LVIDd: 4.58 3.9-5.3/4.2-5.9 cm LVIDd Index: 2.42 2.4-3.2/2.2-3.1 cm/m2 LVIDs: 3.38 2.0-3.6 cm LVPWd: 0.77 0.7-1.1 cm LA Diam: 3.20 2.7-3.8/3.0-4.0 cm LAIDs Index: 1.69 1.5-2.3 cm/m2 LV Mass: 152.65 67-162/88-224 g LV Mass Index: 80.77 43-95/49-115 g/m2 LVOT Diam: 1.90 3.0+(-)1.3 cm Mitral Valve MV Pk E: 0.90 MV PK A: 0.76 MV Decel Time: 203.00 E/A: 1.20 E'Lateral: 11.00 E'Medial: 8.92 E/E' Med: 10.00 E/E' Lat: 8.10 PHT: 60.00 MVA PHT: 3.67 Decel [place]: 4.41 Aortic Valve AoV Pk [place]: 1.41 AoV Pk Grad: 8.00 NAJMA: 2.26 LVOT LVOT Pk [place]: 1.19 LVOT Mn [place]: 0.81 LVOT VTI: 0.23 LVOT Pk Grad: 6.00 LVOT Mn Grad: 3.00 LVOT Diam: 1.90 LVOT Area: 2.84 Diastolic Function MV Pk E: 0.90 MV Pk A: 0.76 E/A: 1.20 E'Medial: 8.92 E/E' Med: 10.00 E' Laterial: 11.00 E/E' Lat: 8.10 Right Ventricle TAPSE (mm): 16.80 TVS' [place]: 9.14 Tricuspid Valve RA Press: 3.00 Great Vessels Aorta Sinus of Valsalva: 2.90 2.0-3.5 cm Ao Asc: 2.90 2.1-3.4 cm Pulmonary Veins Pulm Vein S/D 1.80 Pulmonary Valve PV Pk [place]: 0.85 Peak PV Grad: 3.00 Updated in Other Vendor System with Status of Final Remy Deluca MD electronically signed on 05/11/2024 4:23:08 PM with status of Final
[2024-05-11 07:51] LABS: Anion Gap 11 (12-20); Blood Urea Nitrogen 8 mg/dL (9-16); Calcium 9.2 mg/dL (8.4-10.2); Carbon Dioxide 25 mmol/L (22-29); Chloride 110 mmol/L (96-108); Creatinine Clr Calc Pharmacy 106.8; Estimated Glomerular Filt Rate > 60; Glucose Random 79 mg/dL (60-115); Potassium 3.4 mmol/L (3.3-5.1); Sodium 143 mmol/L (135-145)
[2024-05-11] MEDS: Clopidogrel Bisulfate 75 MG TABLET PO (09:13)
--- NOTE | 2024-05-11 10:02 | HO.CARDTECH ---
Patient refused IV for bubble study and definity.
--- NOTE | 2024-05-11 10:51 | MHC.STROKE ---
I met with patient this morning to discuss in detail her plan of care and steps moving forward while she is in the hospital. Pt was awake, alert and oriented x 3. We discussed her care thus far and she described how she's had some anxiety regarding her stay so far and that she felt one provider was not a good fit for her. We spoke a lot about the testing that has been completed and the results from those tests. We also spoke about future testing and what could be expected regarding those tests. I provided multiple Stroke/TIA information pieces and reviewed each one. All questions were answered. At this point, patient appeared less anxious and I expressed to her that if she has any other questions to please ask for me and I would come and see her. (It was noted in the chart that the patient declined NRT) Will continue to assist as needed.
--- NOTE | 2024-05-11 14:03 | P.CONGS_ITS ---
History of Present Illness Consult details Consult date: 05/11/24 Narrative: Complex 43-year-old female who presented to the emergency room for evaluation of left-sided deficits noted since she awoke the morning of presenting to the ER. She had a tingling in her left face and left leg. She had some numbness which was unclear. She did not distinctly describe a weakness per se. She was seen and worked up in the emergency room. She had undergone CTA of the carotids. She now presents for vascular evaluation. At the time of my exam she reports no deficits or problems. Review of Systems 2 Review of Systems: Yes all other systems are reviewed and are negative Constitutional: Constitutional: Reports no additional constitutional complaints ENT: Reports Normal hearing present Cardiovascular: Cardiovascular: Denies chest pain, Denies chest pain at rest, Denies chest pain with activity and Denies pedal edema Respiratory: Respiratory: Denies cough Gastrointestinal: Gastrointestinal: Denies abdominal pain Musculoskeletal: Musculoskeletal: Denies abnormal gait, Denies muscle cramps and Denies radiating pain into limb Integumentary/Breasts: Skin/Breast: Denies skin ulcer and Denies wounds Neurologic: Reports Normal hearing present and Denies abnormal gait Psychiatric: Psychiatric: Reports no additional psychiatric complaints PMF Past Medical History Medical History Anxiety Esophagitis GERD (gastroesophageal reflux disease) Social History Social History Household Members: Spouse and Family Housing: Apartment Do you presently have visiting nurse or other home services: No Alcohol intake: former Patient Tobacco Use Status: Current everyday Tobacco user Smoked in Last 30 Days: No Patient Interested in Nicotine Replacement: No Use of substances other than those prescribed or required for medical reasons: Yes Substance Use Type: Marijuana Substance Use Frequency: Chronic Longstanding Currently Displaying Signs/Symptoms of Drug Intoxication Withdrawal: No Have you been hit, kicked, punched, or otherwise hurt by someone within the past year? If so, by whom?: No Do you feel safe in your current relationship?: Yes Is there a partner from a previous relationship who is making you feel unsafe now?: No Are you made to feel afraid or neglected: No Advance Directives: No Advance Directives Information Provided: Yes Do you have a plan to hurt others: No Plan Nutrition Risks: Difficulty swallowing Patient : No service: No Meds Allergies Allergy/AdvReac Type Severity Reaction Status Date / Time amoxicillin [AMOXICILLIN] Allergy Unknown HIVES Verified 05/09/24 12:15 aspirin [ASPIRIN] Allergy Unknown DISORIENTED Verified 05/09/24 12:15 azithromycin [Azithromycin] Allergy Unknown HIVES Verified 05/09/24 12:15 erythromycin base Allergy Unknown HIVES TO Verified 05/09/24 12:15 [Erythromycin Base] MYCINS Penicillins [PENICILLINS] Allergy Unknown HIVES Verified 05/09/24 12:15 sulfamethoxazole Allergy Nausea and Verified 05/09/24 12:15 [From Bactrim] Vomiting trimethoprim [From Bactrim] Allergy Nausea and Verified 05/09/24 12:15 Vomiting Active Medications: Current Medications Clopidogrel Bisulfate (Clopidogrel Bisulfate 75 Mg Tablet) 75 mg PO DAILY [facility] Last Admin: 05/11/24 09:13 Dose: 75 mg Pt Own (Lansoprazole (30 Mg)) 30 mg PO DAILY@0630 [facility] Last Admin: 05/11/24 07:29 Dose: 30 mg Sodium Chloride (0.9 % Sodium Chloride Flush 3 Ml Syringe) 3 ml IVFLUSH [facility] Last Admin: 05/11/24 07:34 Dose: Not Given Sodium Chloride (0.9 % Sodium Chloride Flush 3 Ml Syringe) 3 ml IVFLUSH [facility] Last Admin: 05/11/24 07:34 Dose: Not Given Home Medications ?Medication ?Instructions ?Recorded ?Confirmed ?Last Taken ?Type lansoprazole 30 mg capsule,delayed 30 mg PO DAILY@0630 05/09/24 05/09/24 05/09/24 History release Physical Exam 2 Vital Signs: Vital Signs: Last Vital Signs Temp 97.1 F 05/11/24 03:43 Pulse 63 05/11/24 03:43 Resp 16 05/11/24 03:43 BP 116/56 L 05/11/24 03:43 Pulse Ox 95 05/11/24 03:43 O2 Del Method Room Air 05/11/24 12:00 BMI result Body Mass Index 31.6 Const: General: cooperative, healthy appearing and comfortable O rientation/consciousness: oriented to person, oriented to place and oriented to time HEENT: Head: Yes normal to inspection Neck: Neck: Yes normal visual inspection Carotids: no bruits Chest: Chest palpation & inspection: normal inspection of the chest Resp: Effort & Inspection: normal respiratory effort and able to speak in complete sentences Auscultation: clear to auscultation bilaterally, no crackles, no rales, no rhonchi and no wheezes Cardio: Rate: regular rate Rhythm: regular rhythm Heart sounds: S1 normal heart sound present and S2 normal heart sound present Bruits: no carotid bruits Peripheral pulses: Peripheral pulses 2+ throughout GI: Inspection: Yes normal to inspection Skin: Wounds: no wounds Hair: normal Neuro: General: oriented to person, oriented to place and oriented to time Cranial nerves: Yes CN's II-XII intact bilaterally and Yes Normal hearing present Cognition (Neuro): normal cognition Motor exam (neuro): 5/5 motor strength present throughout Extrem: Other: venous exam: No significant superficial varicosities or spider telangiectasias, minimal edema General: No clubbing, No cyanosis and No edema Psych: Appearance: grossly normal Mental Status: mental status grossly normal Speech and movement: Normal speech and movement present Results Labs 05/10/24 05:35 05/11/24 07:23 Labs: Abnormal lab results 05/11/24 Range/Units 07:23 Chloride 110 H (96-108) mmol/L Anion Gap 11 L (12-20) BUN 8 L (9-16) mg/dL BMP 05/11/24 07:23 Sodium 143 Potassium 3.4 Chloride 110 H Carbon Dioxide 25 BUN 8 L Creatinine 0.71 Calcium 9.2 Urine 05/09/24 Range/Units 12:49 Urine Color Yellow Urine Appearance Clear Urine pH 6.5 (5.0-9.0) Ur Specific Sunset <= 1.005 (1.005-1.025) Urine Protein Negative (Neg-Trace) mg/dL Urine Glucose (UA) Negative (Negative) mg/dL Urine Test NEGATIVE (NEGATIVE) All other labs normal. 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 Assessment and Plan (1) Cerebral infarction: Qualifiers: Cerebral infarction mechanism: embolism Precerebral and cerebral artery: middle cerebral artery Laterality of affected vessel: right Qualified Code(s): I63.411 - Cerebral infarction due to embolism of right middle cerebral artery Status: Acute Plan In short patient has had a stroke episode from embolus right middle cerebral artery. It appears her symptoms have resolved. Would obtain carotid ultrasound. If not possible we can obtain as an outpatient. Would discharge on dual anti-platelet agents of aspirin and Plavix. She can follow up with us upon discharge. Procedures Date of Service Date of Service: 05/11/24
--- NOTE | 2024-05-11 14:09 | P.DS_ITS ---
DS: Providers Provider Date of Service: 05/11/24 Date of admission: 05/09/24 18:48 Primary care physician: Unknown Physician Consults: 05/09/24 16:50 Consult to Neurology Routine Consulting Provider: [facility] Reason for consultation: Left-sided deficits, ?CVA 05/10/24 10:24 Consult to Vascular Surgery [place]ine Consulting [place] [facility] Reason for consultation: carotid web- FMD? DS: Diagnosis Discharge Diagnosis (1) Cerebral infarction: Status: Acute DS: Summary Hospital Course Hospital Course: from initial hpi: 43-year-old female with a PMH significant for GERD/esophageal spasms who presents to the ED for evaluation of left-sided deficits noted since waking this morning. Patient states she was in her normal state of health last night at 23:00, but when she awoke this morning felt numbness and tingling on the left side of her face, upper right back, and left upper thigh. Numbness in her back soon resolved, but other deficits remained. Patient initially thought she had slept on her side wrong and attempted to wait out her symptoms for the next 3 hours. However, numbness in left upper thigh worsened and extended all the way down to her knee which then prompted her to come to the ED for further evaluation. Denies any headache or acute vision changes. No upper right extremity numbness or weakness. Denies ataxia, aphasia, or difficulty speaking. Has had bilateral calf pain for the past few days. Also notes he has had an upper respiratory illness for the past 2 weeks, primarily noting postnasal drip, nonproductive cough, sore throat, and rhinorrhea. 5-6 days ago patient also developed intense nausea and vomiting for 3-4 days. Has had reduced p.o. intake and reduced activity during this time. Nausea and vomiting resolved 2 days ago. Currently no chest pain/pressure, palpitations. Denies fever, chills, nausea, vomiting, abdominal pain. Of note, patient currently smokes marijuana and half a pack of cigarettes daily. Reports her mother had a stroke at age 26. In the ED pt was tachycardic up to 105, vitals otherwise stable. Labs were significant for leukocytosis of 12.1, potassium 3.0, and magnesium 1.4. CT of head found no evidence of intracranial hemorrhage edematous territorial infarction. CTA of head and neck found no acute intracranial findings and no acute arterial occlusion or hemodynamically significant stenosis within the head or neck. 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 EKG demonstrated normal sinus rhythm with T-wave inversions in V1 and V2, but no evidence of significant ST elevations or depressions. Pt was treated with IVF, potassium chloride 20 mEq eye V, and Mag sulfate 2 g IV. Pt will be admitted to the hospital for treatment and further evaluation of persistent left-sided deficits concerning for possible CVA. hospital course: Patient was admitted for acute CVA due to unspecified carotid abnormality seen on CTA. Was treated with Plavix due to aspirin allergy. Ldl below 70, will hold off on statin. Patient was not able to tolerate MRI. Was seen by vascular surgery, ultrasound carotid performed and should be followed up outpatient. Smoking cessation is recommended. For GERD was continued on PPI. Patient has no residual deficits, will not require rehab, will be discharged home. Plan to continue Plavix for 3 months. Time Attestation Total time managing care of this patient today: 32 mintues. Discharge Coordination Time (in mins): 32 Quality: Safe Use of Opioids Does Pt have an Active Cancer Diagnosis on the Problem List?: No Quality: Stroke Does the patient have a stroke diagnosis?: Yes Reason for No Anti-thrombotic at DC: N/A - Med Ordered Reason for No Anticoagulant at DC: Drug treatment not indicated Reason Not Initiating IV-Tpa: Drug treatment not indicated Reason for No Anti-thrombotic by Day Two: N/A - Med Ordered Reason for No Statin at DC: Drug treatment not indicated Physical Exam Vital Signs: Vital Signs: Last Vital Signs Temp 97.1 F 05/11/24 03:43 Pulse 63 05/11/24 03:43 Resp 16 05/11/24 03:43 BP 116/56 L 05/11/24 03:43 Pulse Ox 95 05/11/24 03:43 O2 Del Method Room Air 05/11/24 12:00 BMI result Body Mass Index 31.6 General: AO X 3, no acute distress Resp: CTA bilateral, no accessory muscles used CVS: S1,S2,RRR GI: soft, non tender, non distended Neuro: motor grossly intact, alert Psych: appropriate affect, appropriate insight DS: Data Data Completed and Pending Labs on day of discharge: Laboratory Results - last 24 hr 05/11/24 07:23 Sodium 143 Potassium 3.4 Chloride 110 H Carbon Dioxide 25 Anion Gap 11 L BUN 8 L Creatinine 0.71 Estim Creat Clear Calc 106.8 Estimated GFR > 60 Random Glucose 79 Calcium 9.2 Discharge Plan Discharge Anticipated Discharge Date/Time: 05/11/24 12:32 Patient Disposition: Home, Self-Care Discharge Diagnosis: stroke, carotid abnormality Referrals: Aman Ochoa MD [Physician] - 1 Month Timothy Fleming MD [Physician] - 1 Week Physician,Unknown J [Primary Care Provider] - 1 Week Discharge Medications: New nicotine 21 mg/24 hr Patch 24 Hour 21 mg transdermal DAILY PRN (Reason: Nicotine Cravings) Qty: 30 0RF clopidogrel 75 mg Tablet 75 mg PO DAILY Qty: 90 0RF Continued lansoprazole 30 mg capsule,delayed release(DR/EC) 30 mg PO DAILY@0630 Diet: Mediterranean Activity on Discharge: As tolerated Stand Alone Forms: Patient Portal Discharge page Print Language: Romanian Care Plan Goals: stroke prevention Health Concerns: acute stroke (TIA) carotid abnormality Plan of Treatment: take clopidogrel 75 mg daily quit smoking Mediterranean diet follow up with Neurology and vascular surgery Assessment: See above
--- NOTE | 2024-05-11 15:33 | MHC.CM.PN ---
Patient has been medically cleared for dc to home today, self care.
== END 2024-05-11 19:12 | disposition home or self-care (01) | DRG 45 ==
LOC: HO.ED 15:22 → HO.EDOVER 18:54 → HO.IMC 19:01
PROVIDERS: Family Medicine; Physician Assistant; Admitting Provider Student in an Organized Health Care Education/Training Program; Emergency Provider Emergency Medicine Emergency Medical Services; PCP Internal Medicine; Visit Provider Internal Medicine
DX: I63.411 Cerebral infarction due to embolism of right middle cerebral artery (principal); F17.210 Nicotine dependence, cigarettes, uncomplicated; R93.1 Abnormal findings on diagnostic imaging of heart and coronary circulation; F41.9 Anxiety disorder, unspecified; K21.9 Gastro-esophageal reflux disease without esophagitis; K22.4 Dyskinesia of esophagus; R29.810 Facial weakness; R29.704 NIHSS score 4; G83.14 Monoplegia of lower limb affecting left nondominant side; Z71.6 Tobacco abuse counseling; Z79.899 Other long term (current) drug therapy
CPT/HCPCS: 36415; 70450; 70496; 70498; 80048; 80061; 80076; 80307; 81001; 81003; 81025; 82947; 83036; 83735; 84443; 85025; 85027; 85610; 85730; 93005; 93306; 93880; 97161; 97165; 99285; J3475; J3480; Q9967

== ENCOUNTER → 2024-05-09 12:17 | Outpatient (BNV) | payer MEDICAID, SELFPAY | PROVIDERS: Admitting Provider Student in an Organized Health Care Education/Training Program; Emergency Provider Emergency Medicine Emergency Medical Services; Visit Provider Internal Medicine | DX: R94.31 Abnormal electrocardiogram [ECG] [EKG] (principal) | CPT/HCPCS: 93010 ==

== ENCOUNTER 2024-05-09 18:48 | Outpatient (BNV) | payer MEDICAID, SELFPAY | END 2024-05-11 07:00 | PROVIDERS: Admitting Provider Student in an Organized Health Care Education/Training Program; Emergency Provider Emergency Medicine Emergency Medical Services; Visit Provider Internal Medicine Cardiovascular Disease | DX: I34.0 Nonrheumatic mitral (valve) insufficiency (principal) | CPT/HCPCS: 93306 ==

== ENCOUNTER → 2024-05-09 18:48 | Outpatient (BNV) | payer MEDICAID, SELFPAY | PROVIDERS: Admitting Provider Student in an Organized Health Care Education/Training Program; Emergency Provider Emergency Medicine Emergency Medical Services; Visit Provider Psychiatry & Neurology Neurology | DX: I63.411 Cerebral infarction due to embolism of right middle cerebral artery (principal) | CPT/HCPCS: 99222 ==

== ENCOUNTER → 2024-05-09 18:48 | Outpatient (BNV) | payer MEDICAID, SELFPAY | PROVIDERS: Admitting Provider Student in an Organized Health Care Education/Training Program; Emergency Provider Emergency Medicine Emergency Medical Services; Visit Provider Surgery Vascular Surgery | DX: I63.411 Cerebral infarction due to embolism of right middle cerebral artery (principal) | CPT/HCPCS: 99222 ==

== ENCOUNTER → 2024-05-09 18:48 | Outpatient (BNV) | payer MEDICAID, SELFPAY | PROVIDERS: Admitting Provider Student in an Organized Health Care Education/Training Program; Emergency Provider Emergency Medicine Emergency Medical Services; Visit Provider Student in an Organized Health Care Education/Training Program | DX: R29.898 Other symptoms and signs involving the musculoskeletal system (principal); I63.411 Cerebral infarction due to embolism of right middle cerebral artery | CPT/HCPCS: 99223; 99233; 99239; 99499 ==

== ENCOUNTER 2024-07-16 14:49 | Outpatient (AMB) | payer MEDICAID, SELFPAY ==
--- NOTE | 2024-07-16 14:55 | MHC.OFFVIS ---
Intake Visit Reasons: Hospital Follow Up Carotids Intake Note: Hospital Follow up TIA s/p CTA neck 05/09/24, was discharged on ASA and Plavix but after one week she had severe headaches, states that PCP tried other blood thinners but had the same results. Allergy to ASA. Accompanied by: Self / Same As Patient Allergies amoxicillin [AMOXICILLIN] Allergy (Unknown, Verified 07/16/24 15:04) HIVES aspirin [ASPIRIN] Allergy (Unknown, Verified 07/16/24 15:04) DISORIENTED azithromycin [Azithromycin] Allergy (Unknown, Verified 07/16/24 15:04) HIVES erythromycin base [Erythromycin Base] Allergy (Unknown, Verified 07/16/24 15:04) HIVES TO MYCINS Penicillins [PENICILLINS] Allergy (Unknown, Verified 07/16/24 15:04) HIVES sulfamethoxazole [From Bactrim] Allergy (Verified 07/16/24 15:04) Nausea and Vomiting trimethoprim [From Bactrim] Allergy (Verified 07/16/24 15:04) Nausea and Vomiting sulfa drugs Adverse Reaction (Severe, Uncoded 07/16/24 15:04) Vomiting HPI HPI Hospital Follow Up Carotids: Details: Very pleasant 55-year-old female presents for follow-up with CT angiogram of head and neck. She had unusual findings on the CT angiogram. She has had no repeat episodes of syncope or tingling in her face and leg. She in general is a nervous person and reports generalized anxiety. She does report some pulling in her right neck. She is down to smoking a half pack per day from 1 pack per day. She now presents for vascular follow-up. [facility] Medical History Anxiety Esophagitis GERD (gastroesophageal reflux disease) Social History (Updated 07/16/24 @ 15:06 by TRAVIS Mena) Household Members: Spouse and Family Housing: Apartment Do you presently have visiting nurse or other home services: No Alcohol intake: former Patient Tobacco Use Status: Current everyday Tobacco user Cigarettes Per Day: 4 Substance Use Type: Marijuana service: No Review of Systems Const All systems reviewed & are unremarkable except as noted in HPI and below Reports no additional complaints ENT Reports Normal hearing present Card Denies chest pain, Denies chest pain at rest, Denies chest pain with activity and Denies pedal edema Resp Denies cough GI Denies abdominal pain Musc Denies abnormal gait, Denies muscle cramps and Denies radiating pain into limb Skin/Breast Denies skin ulcer and Denies wounds Neuro Reports Normal hearing present and Denies abnormal gait Psych Reports no additional complaints Physical Exam Const General: cooperative, healthy appearing and comfortable Orientation/consciousness: oriented to person, oriented to place and oriented to time HEENT Head: Yes normal to inspection Neck Neck: Yes normal visual inspection Carotids: no bruits Chest Chest palpation & inspection: normal inspection of the chest Resp Effort & Inspection: normal respiratory effort and able to speak in complete sentences Auscultation: clear to auscultation bilaterally, no crackles, no rales, no rhonchi and no wheezes Cardio Other: Discrepancy in bilateral upper extremity pulses. Left stronger than right Rate: regular rate Rhythm: regular rhythm Heart sounds: S1 normal heart sound present and S2 normal heart sound present Bruits: no carotid bruits Peripheral pulses: Peripheral pulses 2+ throughout GI Inspection: Yes normal to inspection Skin Wounds: no wounds Hair: normal Neuro General: oriented to person, oriented to place and oriented to time Cranial nerves: Yes CN's II-XII intact bilaterally and Yes Normal hearing present Cognition (Neuro): normal cognition Motor exam (neuro): 5/5 motor strength present throughout Extrem Other: venous exam: No significant superficial varicosities or spider telangiectasias, minimal edema General: No clubbing, No cyanosis and No edema Psych Appearance: grossly normal Mental Status: mental status grossly normal Speech and movement: Normal speech and movement present Results Reviewed Results Reviewed: CT angiogram dated 05/09/2024 demonstrates no acute occlusion or stenosis. There was a shelf-like filling defect on the right carotid bifurcation. This was on report I did not appreciate this on the images myself. Ultrasound was reviewed as well. Assessment & Plan Assessment & Plan (1) Subclavian arterial stenosis: Code(s): I77.1 - Stricture of artery Category: Medical Plan: In short there is concern about subclavian stenosis. I have taken the liberty of ordering a CT angiogram to better elucidate this. She will follow up with us after testing. Thank you for allowing us to assist in her care. If there are any questions or concerns please do not hesitate to contact us Orders: Orders CT angio chest aorta Today I77.1 - Stricture of artery Blood Urea Nitrogen Today I77.1 - Stricture of artery Creatinine Today I77.1 - Stricture of artery Coding Level of Care Code Est Pt Level 4 (58635) Diagnoses Subclavian arterial stenosis I77.1
== END 2024-07-16 15:29 | disposition home or self-care (01) ==
PROVIDERS: PCP Internal Medicine; Visit Provider Surgery Vascular Surgery
DX: I77.1 Stricture of artery (principal)
CPT/HCPCS: 99214

== ENCOUNTER → 2024-07-16 14:49 | Outpatient (BNVA) | payer MEDICAID, SELFPAY | PROVIDERS: PCP Internal Medicine; Visit Provider Surgery Vascular Surgery | DX: I77.1 Stricture of artery (principal); F17.210 Nicotine dependence, cigarettes, uncomplicated | CPT/HCPCS: 99212 ==

== ENCOUNTER 2024-07-29 11:28 | Outpatient (REF) | payer MEDICAID, SELFPAY ==
--- NOTE | ~2024-07-29 | CT_ITS ---
EXAMINATION: CT ANGIOGRAM CHEST CLINICAL INFORMATION: Subclavian stenosis. COMPARISON: CT angiogram chest dated July 04, 2014 report. Images are not available on PACS TECHNIQUE: Multiple axial images were obtained through the chest after the administration of 65 mL of Omnipaque 350 intravenous contrast without reported immediate complications. Extensive vascular post-processing including two-dimensional and three-dimensional reformatted images were created and reviewed on an independent workstation. This CT examination was performed using dose optimization techniques as appropriate, variously including the following: *Automated exposure control *Adjustment of mA and/or kV according to patient size (this includes techniques or standardized protocols for targeted exams where dose is matched to indication/reason for exam; i.e. extremities or head) *Use of iterative reconstruction technique DLP: 138 mGy-cm FINDINGS: Submitted for interpretation on September 25, 2024. Thoracic aorta: Normal enhancement pattern. No focal stenosis. No intimal flap. Normal diameter. Right CCA: Normal patency. No focal stenosis. No intimal flap. Right subclavian artery: Proximal segment demonstrated normal patency without focal stenosis or intimal flap. Left CCA: Normal patency. No focal stenosis. No intimal flap. Left subclavian artery: Proximal segment demonstrated no focal stenosis or intimal flap. Normal patency. Left vertebral artery origin is directly from the subclavian artery. Normal patency. Right vertebral artery is not identified. Main pulmonary artery and its main left and right branches are patent without intraluminal filling defects. No lymphadenopathy, mediastinum or perihilar. 1 cm right pretracheal lymph node, nonspecific. Calcified plaques coronary arteries. No pericardial effusion. No consolidation, pleural effusion. No bronchiectasis. Honeycombing. No discrete pulmonary nodule. No acute fracture or listhesis. No lytic or blastic lesions. CT/CT angio chest aorta IMPRESSION: No aneurysm or dissection, thoracic aorta. No hydronephrosis stenosis in the proximal segments of the subclavian arteries. Fleischner guidelines were followed. Electronically signed by: Sean Ramos MD 09/25/2024 10:56 AM EDT
[2024-07-29] MEDS: iohexoL 350 MG/ML 100 ML INFUS..BTL IV (11:55)
== END 2024-07-29 11:29 | disposition home or self-care (01) ==
LOC: HO.CT 11:28
PROVIDERS: PCP Internal Medicine; Visit Provider Surgery Vascular Surgery
DX: I77.1 Stricture of artery (principal)
CPT/HCPCS: 71275; Q9967

== ENCOUNTER → 2024-07-29 11:30 | Outpatient (BNV) | payer MEDICAID, SELFPAY | PROVIDERS: PCP Internal Medicine; Visit Provider Radiology Diagnostic Radiology | DX: I77.1 Stricture of artery (principal) | CPT/HCPCS: 71275 ==

== ENCOUNTER 2024-10-27 10:56 | Outpatient (AMB) | payer MEDICAID, SELFPAY ==
--- NOTE | 2024-10-27 11:08 | MHC.OFFVIS ---
Intake Visit Reasons: follow up s/p CTA chest 07/29/24 Intake Note: Patient presents for follow up CTA chest 07/29/24. Allergies amoxicillin [AMOXICILLIN] Allergy (Unknown, Verified 10/27/24 11:10) HIVES aspirin [ASPIRIN] Allergy (Unknown, Verified 10/27/24 11:10) DISORIENTED azithromycin [Azithromycin] Allergy (Unknown, Verified 10/27/24 11:10) HIVES erythromycin base [Erythromycin Base] Allergy (Unknown, Verified 10/27/24 11:10) HIVES TO MYCINS Penicillins [PENICILLINS] Allergy (Unknown, Verified 10/27/24 11:10) HIVES sulfamethoxazole [From Bactrim] Allergy (Verified 10/27/24 11:10) Nausea and Vomiting trimethoprim [From Bactrim] Allergy (Verified 10/27/24 11:10) Nausea and Vomiting sulfa drugs Adverse Reaction (Severe, Uncoded 07/16/24 15:04) Vomiting HPI HPI follow up s/p CTA chest 07/29/24: Details: Very pleasant 44-year-old female presents for follow-up. She reports that it began as a syncopal episode with tingling in her face and legs. In general is a nervous person and has some anxiety. She currently smokes about a half pack per day. She now presents for follow-up with CT scan for concerns of subclavian stenosis. [facility] Medical History Anxiety Esophagitis GERD (gastroesophageal reflux disease) Social History Household Members: Spouse and Family Housing: Apartment Do you presently have visiting nurse or other home services: No Alcohol intake: former Patient Tobacco Use Status: Current everyday Tobacco user Cigarettes Per Day: 4 Substance Use Type: Marijuana service: No Review of Systems Const All systems reviewed & are unremarkable except as noted in HPI and below Reports no additional complaints ENT Reports Normal hearing present Card Denies chest pain, Denies chest pain at rest, Denies chest pain with activity and Denies pedal edema Resp Denies cough GI Denies abdominal pain Musc Denies abnormal gait, Denies muscle cramps and Denies radiating pain into limb Skin/Breast Denies skin ulcer and Denies wounds Neuro Reports Normal hearing present and Denies abnormal gait Psych Reports no additional complaints Physical Exam Const General: cooperative, healthy appearing and comfortable Orientation/consciousness: oriented to person, oriented to place and oriented to time HEENT Head: Yes normal to inspection Neck Other: Right neck tenderness over palpation of sternocleidomastoid muscle. Tenderness over cervical spine. Neck: Yes normal visual inspection Carotids: no bruits Chest Chest palpation & inspection: normal inspection of the chest Resp Effort & Inspection: normal respiratory effort and able to speak in complete sentences Auscultation: clear to auscultation bilaterally, no crackles, no rales, no rhonchi and no wheezes Cardio Rate: regular rate Rhythm: regular rhythm Heart sounds: S1 normal heart sound present and S2 normal heart sound present Bruits: no carotid bruits Peripheral pulses: Peripheral pulses 2+ throughout GI Inspection: Yes normal to inspection Skin Wounds: no wounds Hair: normal Neuro General: oriented to person, oriented to place and oriented to time Cranial nerves: Yes CN's II-XII intact bilaterally and Yes Normal hearing present Cognition (Neuro): normal cognition Motor exam (neuro): 5/5 motor strength present throughout Extrem Other: venous exam: No significant superficial varicosities or spider telangiectasias, minimal edema General: No clubbing, No cyanosis and No edema Psych Appearance: grossly normal Mental Status: mental status grossly normal Speech and movement: Normal speech and movement present Results Reviewed Results Reviewed: CT angiogram dated 07/29/2024 demonstrates no evidence of subclavian stenosis. Assessment & Plan Assessment & Plan (1) Neck pain: Code(s): M54.2 - Cervicalgia Category: Medical Plan: In short patient is negative for any significant arterial disease. I do think the carotids were a bit of an over read and the CT angiogram demonstrates no significant subclavian stenosis. She does have some evidence of musculoskeletal pain on physical exam in addition to the cervical spine. This was all related to the patient. She demonstrated an understanding. I did suggest possible evaluation by our pain management team. She was in agreement. We will make the referral for that. She will follow up with us on an as-needed basis. Thank you for allowing us to assist in her care. Orders: Referrals Pain Management Referral M54.2 - Cervicalgia Coding Level of Care Code Est Pt Level 4 (61748) Diagnoses Neck pain M54.2
== END 2024-10-27 11:49 | disposition home or self-care (01) ==
PROVIDERS: PCP Internal Medicine; Visit Provider Surgery Vascular Surgery
DX: M54.2 Cervicalgia (principal)
CPT/HCPCS: 99214

== ENCOUNTER → 2024-10-27 10:56 | Outpatient (BNVA) | payer MEDICAID, SELFPAY | PROVIDERS: PCP Internal Medicine; Visit Provider Surgery Vascular Surgery | DX: M54.2 Cervicalgia (principal) | CPT/HCPCS: 99212 ==

== ENCOUNTER 2024-12-04 02:10 | Emergency (ER) | payer MEDICAID, SELFPAY ==
--- NOTE | 2024-12-04 | ECG_ITS ---
Test Reason : CHEST PAIN Blood Pressure : */* mmHG Vent. Rate : 83 BPM Atrial Rate : 83 BPM P-R Int : 124 ms QRS Dur : 74 ms QT Int : 380 ms P-R-T Axes : 46 31 50 degrees QTcB Int : 446 ms Normal sinus rhythm ST & T wave abnormality, consider anterior ischemia Abnormal ECG When compared with ECG of 09-May-2024 12:39, No significant changes seen Referred By: Generic ED Physician Electronically Signed By: CHAPIS PETERSEN
[2024-12-04 02:14] VITALS: BP 131/78; PULSE 86; RESP 20; TEMP 36.7; O2SAT 98; BMI 33.4
[2024-12-04 02:28] LABS: MANUAL DIFF FLAG NO
[2024-12-04 02:30] LABS: Basophils Absolute Auto 0.1 X10*3/uL (0.0-0.2); Basophils Percent Auto 0.6 % (0-2); Eosinophils Absolute Auto 0.1 X10*3/uL (0.0-0.4); Eosinophils Percent Auto 1.2 % (0-4); Hematocrit 37.8 % (37.0-47.0); Hemoglobin 13.3 g/dl (12.0-16.0); Imm Gran Abs Auto 0.05 X10*3/uL (0.00-0.03); Imm Gran Pct Auto 0.4 % (0.0-0.4); Lymphocytes Absolute Auto 4.3 X10*3/uL (1.2-4.9); Lymphocytes Percent Auto 35.6 % (20-40); Mean Corpuscular HGB Conc 35.2 g/dl (31.0-35.0); Mean Corpuscular Hemoglobin 36.9 pg (27.0-33.0); Mean Platelet Volume 10.3 fL (9.4-12.3); Monocytes Absolute Auto 0.5 X10*3/uL (0.1-1.2); Monocytes Percent Auto 3.9 % (2-11); Neutrophils Percent Auto 58.3 % (45-73); Platelet Count 241 X10*3/uL (160-400); Red Cell Distribution Width 15.6 % (11.0-16.0)
[2024-12-04 02:52] LABS: Troponin-I High Sensitivity < 2.7 ng/L (<3.5-17.0)
[2024-12-04 03:03] LABS: Alanine Aminotransferase 12 U/L (0-31); Albumin Level 3.6 g/dL (3.5-5.0); Alkaline Phosphatase 84 U/L (39-117); Anion Gap 11 (12-20); Aspartate Amino Transferase 20 U/L (5-31); Bilirubin Total 0.3 mg/dL (0.0-1.0); Calcium 8.7 mg/dL (8.4-10.2); Carbon Dioxide 23 mmol/L (22-29); Chloride 112 mmol/L (96-108); Creatinine Clr Calc Pharmacy 100.6; Estimated Glomerular Filt Rate > 60; Glucose Random 104 mg/dL (60-115); Lipase 16 U/L (8-78); Magnesium 1.6 mg/dL (1.6-2.6); Potassium 3.4 mmol/L (3.3-5.1); Sodium 143 mmol/L (135-145); Total Protein 6.3 g/dL (6.5-8.0)
[2024-12-04 03:17] LABS: Blood Urea Nitrogen 7 mg/dL (9-16)
--- NOTE | 2024-12-04 03:17 | ED.CHESTPAIN ---
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 patient is on clopidogrel daily Related Data Home Medications ?Medication ?Instructions ?Recorded ?Confirmed lansoprazole 30 mg capsule,delayed 30 mg PO DAILY@0630 05/09/24 05/09/24 release Previous Rx's ?Medication ?Instructions ?Recorded clopidogrel 75 mg tablet 75 mg PO DAILY #90 tabs 05/10/24 nicotine 21 mg/24 hr daily 21 mg transdermal DAILY PRN 05/10/24 transdermal patch Nicotine Cravings #30 ea Allergies Allergy/AdvReac Type Severity Reaction Status Date / Time amoxicillin [AMOXICILLIN] Allergy Unknown HIVES Verified 12/04/24 02:15 aspirin [ASPIRIN] Allergy Unknown DISORIENTED Verified 12/04/24 02:15 azithromycin [Azithromycin] Allergy Unknown HIVES Verified 12/04/24 02:15 erythromycin base Allergy Unknown HIVES TO Verified 12/04/24 02:15 [Erythromycin Base] MYCINS Penicillins [PENICILLINS] Allergy Unknown HIVES Verified 12/04/24 02:15 sulfamethoxazole Allergy Nausea and Verified 12/04/24 02:15 [From Bactrim] Vomiting trimethoprim [From Bactrim] Allergy Nausea and Verified 12/04/24 02:15 Vomiting acetaminophen [From Percocet] AdvReac Unknown Verified 12/04/24 04:18 oxycodone [From Percocet] AdvReac Unknown Verified 12/04/24 04:18 sulfa drugs AdvReac Severe Vomiting Uncoded 07/16/24 15:04 Review of Systems Review of Systems: Yes all other systems are reviewed and are negative PMFSH Past Medical History Medical History Anxiety Esophagitis GERD (gastroesophageal reflux disease) Social History Social History Household Members: Spouse and Family Housing: Apartment Do you presently have visiting nurse or other home services: No Alcohol intake: former Patient Tobacco Use Status: Current everyday Tobacco user Cigarettes Per Day: 4 Smoked in Last 30 Days: Yes Use of substances other than those prescribed or required for medical reasons: Yes Substance Use Type: Marijuana Advance Directives: No Do you have a plan to hurt others: No Plan service: No Physical Exam Vital Signs: Vital Signs: Last Vital Signs Temp 98.2 F 12/04/24 04:00 Pulse 78 12/04/24 04:00 Resp 16 12/04/24 04:00 BP 101/65 12/04/24 04:00 Pulse Ox 100 12/04/24 04:00 O2 Del Method Room Air 12/04/24 04:00 BMI result Body Mass Index 33.4 Appearance: Alert. Oriented X3. No acute distress. Eyes: PERRLA, No Nystagmus ENT: Pharynx normal. Oral Mucosa moist Neck: Normal inspection. Neck supple. CVS: Normal heart rate and rhythm. Pulses normal. Midline chest wall tenderness Respiratory: No respiratory distress. Equal air entry bilateral, no wheezing/rales/rhonchi Abdomen: Soft and nontender. Bowel sounds are present, no mass palpable, no CVA tenderness Skin: Skin warm and dry. Normal skin color. Normal skin turgor. Extremities: No lower extremity edema. No calf tenderness Neuro: Oriented X 3. No motor deficit. No sensory deficit.No cerebellar signs , cranial nerves II-XII intact Medical Decision Making Medical Decision Making MDM Narrative: Patient with atypical chest pain for last 3 days 2 sets of cardiac enzymes negative EKG without any ischemic changes bedside echo was done which showed normal LV functions normal LV motilities no pericardial effusion patient advised to follow with director of kids Differential Diagnosis Differential Diagnoses: The differential diagnosis associated with the presentation includes ACS/pericarditis/musculoskeletal pain Admission/Observation Consideration of admission/observation: Escalation of care including admission/observation considered Lab Data [facility] Lab Attestation statement: I reviewed the patient's lab results. 12/04/24 02:22 12/04/24 02:22 Labs: Lab Results 12/04/24 12/04/24 Range/Units 02:22 04:28 WBC 12.0 H (4.8-10.8) X10*3/uL RBC 3.60 L (4.20-5.50) X10*6/uL Hgb 13.3 (12.0-16.0) g/dl Hct 37.8 (37.0-47.0) % MCV 105.0 H (80.0-98.0) fL MCH 36.9 H (27.0-33.0) pg MCHC 35.2 H (31.0-35.0) g/dl RDW 15.6 (11.0-16.0) % Plt Count 241 (160-400) X10*3/uL MPV 10.3 (9.4-12.3) fL Immature Gran % (Auto) 0.4 (0.0-0.4) % Neut % (Auto) 58.3 (45-73) % Lymph % (Auto) 35.6 (20-40) % Atlantic % (Auto) 3.9 (2-11) % Eos % (Auto) 1.2 (0-4) % Baso % (Auto) 0.6 (0-2) % Lymph # (Auto) 4.3 (1.2-4.9) X10*3/uL Atlantic # (Auto) 0.5 (0.1-1.2) X10*3/uL Eos # (Auto) 0.1 (0.0-0.4) X10*3/uL Baso # (Auto) 0.1 (0.0-0.2) X10*3/uL Abs Immat Gran (auto) 0.05 H (0.00-0.03) X10*3/uL Absolute Neuts (auto) 7.0 (2.0-8.3) x10*3/uL Absolute Nucleated RBC 0.000 (0.0-0.012) X10*3/uL Nucleated RBC % (auto) 0.0 (0.0-0.2) /100WBC Sodium 143 (135-145) mmol/L Potassium 3.4 (3.3-5.1) mmol/L Chloride 112 H (96-108) mmol/L Carbon Dioxide 23 (22-29) mmol/L Anion Gap 11 L (12-20) BUN 7 L (9-16) mg/dL Creatinine 0.74 (0.5-1.4) mg/dL Estim Creat Clear Calc 100.6 Estimated GFR > 60 Random Glucose 104 (60-115) mg/dL Calcium 8.7 (8.4-10.2) mg/dL Magnesium 1.6 (1.6-2.6) mg/dL Total Bilirubin 0.3 (0.0-1.0) mg/dL AST 20 (5-31) U/L ALT 12 (0-31) U/L Alkaline Phosphatase 84 (39-117) U/L Troponin I High Sens < 2.7 < 2.7 (<3.5-17.0) ng/L Total Protein 6.3 L (6.5-8.0) g/dL Albumin 3.6 (3.5-5.0) g/dL Lipase 16 (8-78) U/L Independent Interpretation I performed an independent interpretation of an: EKG Interpretation: Normal sinus rhythm heart rate 83 beats per minute interval nonspecific STT wave changes in anterior leads no acute ST elevation no acute ischemia Discharge Plan Discharge Clinical Impression: Chest pain Patient Disposition: Home, Self-Care Instructions: Chest Pain (ED) Additional Instructions: Cause of your chest pain is not clear your cardiac enzymes are negative for acute coronary damage Follow up with director of kids/PCP for further management including stress test and stress echo Prescriptions: No Action lansoprazole 30 mg capsule,delayed release(DR/EC) 30 mg PO DAILY@0630 nicotine 21 mg/24 hr Patch 24 Hour 21 mg transdermal DAILY PRN (Reason: Nicotine Cravings) Qty: 30 0RF clopidogrel 75 mg Tablet 75 mg PO DAILY Qty: 90 0RF Referrals: Remy Deluca MD [Physician] - 1 week Print Language: Upper Sorbian
[2024-12-04 04:00] VITALS: BP 101/65; PULSE 78; RESP 16; TEMP 36.8; O2SAT 100
[2024-12-04 04:57] LABS: Troponin-I High Sensitivity < 2.7 ng/L (<3.5-17.0)
[2024-12-04 05:25] VITALS: BP 124/77; PULSE 70; RESP 16; TEMP 36.6; O2SAT 99
== END 2024-12-04 05:35 | disposition home or self-care (01) ==
PROVIDERS: Emergency Provider Internal Medicine; PCP Internal Medicine
DX: R07.89 Other chest pain (principal); M79.602 Pain in left arm; Z79.899 Other long term (current) drug therapy; F17.210 Nicotine dependence, cigarettes, uncomplicated
CPT/HCPCS: 36415; 80053; 83690; 83735; 84484; 85025; 93005; 99285

== ENCOUNTER → 2024-12-04 02:20 | Outpatient (BNV) | payer MEDICAID, SELFPAY | PROVIDERS: Emergency Provider Internal Medicine; PCP Internal Medicine; Visit Provider Internal Medicine | DX: R94.31 Abnormal electrocardiogram [ECG] [EKG] (principal) | CPT/HCPCS: 93010 ==